=== PATIENT | male | born 1955 | race African-American/Black ===

== ENCOUNTER 2019-02-07 12:02 | Inpatient (IN) ==
--- NOTE | 2019-02-06 13:57 | Anesthesiology Consultation ---
Date of Service February 06, 2019 Assessment & Plan (1) Encounter for pre-operative examination: CHECK BSG AM DOS A1C and MRSA swab ordered by surgeon but apparently not completed. Perform AM DOS at surgeon and anesthesia discretion. BSG was 86 on pre-op testing 02/06. Patient is an inmate at [facility]. Hx obtained from records. Please confirm meds/allergies/hx AM DOS. Chart Review Chart Review: Acceptable Risk for Surgery and Patient NOT seen in Pre Admission Testing History Surgery Operation Date: 02/07/19 13:30 Proposed Procedures p Right Lateral Open Reduction Internal Fixation Malleous Fracture - Job Guerrero MD Height/Weight Height: 6 ft Weight: 108.862 kg Allergies Allergy/AdvReac Type Severity Reaction Status Date / Time No Known Allergies Allergy Unverified 02/06/19 13:45 Medications Home Medications Medication Instructions Recorded Confirmed Last Taken acetaminophen [Tylenol] 325 mg PO QID PRN 02/06/19 02/06/19 Unknown aspirin [Aspirin Low Dose] 81 mg PO DAILY 02/06/19 02/06/19 Unknown atorvastatin 40 mg PO DAILY 02/06/19 02/06/19 Unknown ibuprofen 600 mg PO QID PRN 02/06/19 02/06/19 Unknown levothyroxine 75 mcg PO DAILY 02/06/19 02/06/19 Unknown lisinopril 20 mg PO DAILY 02/06/19 02/06/19 Unknown metformin 500 mg PO DAILY 02/06/19 02/06/19 Unknown Past Medical History Medical History Ankle fracture Diabetes mellitus Essential (primary) hypertension Hypothyroidism Tobacco use Past Surgical History Surgical History History of facial fracture repair Orbital bone Testing Laboratory Results 02/06/19 WBC: 5.84 H/H: 13.6/40.3 PLATELETS: 325 SODIUM: 141 POTASSIUM: 4.6 CHLORIDE: 106 CO2: 29 BUN: 13 CREATININE: 0.99 GLUCOSE: 86 Electrocardiogram Date: 02/06/19 Findings: + SB @ (54)
[~2019-02-07 12:02] MED LIST: BUPIVACAINE 0.25% 30 ML VIAL ONE; CEFAZOLIN 2000MG 2,000 MG/15 ML SYR IV SCH; LR 15ML/HR IV SCH; ROPIVACAINE 0.5% 5 MG/ML 30 ML VIAL ONE
[2019-02-07] MEDS ORDERED: PHENYLEPHRINE 100MCG/ML 5ML SYR IV PRN (12:41)
[2019-02-07] MEDS ORDERED: fentaNYL citrate 100 MCG/2 ML VIAL IV PRN (12:41)
[2019-02-07] MEDS ORDERED: ATROPINE SULFATE 0.1 MG/ML 10ML SYR IV PRN (12:41)
[2019-02-07] MEDS ORDERED: ePHEDrine sulfate 50 MG/ML AMP IV PRN (12:41)
[2019-02-07] MEDS ORDERED: PROMETHAZINE HCL 12.5 MG in SODIUM CHLORIDE 0.9% 50 ML IV PRN (12:41)
[2019-02-07] MEDS ORDERED: ONDANSETRON INJ 2 MG/ML 2 ML VIAL IV PRN (12:41)
[2019-02-07] MEDS ORDERED: HYDROmorphone INJ 1 MG/ML SYRINGE IV PRN (12:41)
[2019-02-07] MEDS ORDERED: ONDANSETRON INJ 2 MG/ML 2 ML VIAL ONE (13:10)
[2019-02-07] MEDS ORDERED: MIDAZOLAM HCL 1 MG/ML 2ML VIAL ONE ×2 (13:10)
[2019-02-07] MEDS ORDERED: PROPOFOL IV EMULSION 10 MG/ML 20 ML VIAL IV ONE (13:10)
[2019-02-07] MEDS ORDERED: fentaNYL citrate 100 MCG/2 ML VIAL ONE (13:10)
[2019-02-07] MEDS ORDERED: DEXAMETHASONE SOD INJ 4 MG/ML VIAL ONE (13:10)
[2019-02-07] MEDS ORDERED: LIDOCAINE HCL 2% 2 ML VIAL/AMP(20MG/ML) INFIL ONE (13:10)
--- NOTE | 2019-02-07 13:21 | History & Physical Bridge Note ---
Date of Service February 07, 2019 History & Physical Bridge Note I have examined the patient, reviewed the History & Physical and in the interval since the performance of the History & Physical I have noted the following changes of clinical significance: no changes noted
[2019-02-07] MEDS ORDERED: POVIDONE-IODINE OP SOLN 30 ML BTL ONE (13:29)
[2019-02-07 13:31] LABS: Estimated Average Glucose 131 mg/dl; Hemoglobin A1C 6.2 % (4.5-5.6)
[2019-02-07] MEDS ORDERED: BUPIVACAINE 0.5 % 5 MG/1 ML MPF 30ML VIAL ONE (13:49)
[2019-02-07] MEDS ORDERED: HYDROmorphone INJ 2 MG/ML SYR/VIAL ONE (14:16)
--- NOTE | 2019-02-07 15:34 | Operative Report ---
Post Operative Report Pre & Post Diagnosis Operation Date: 02/07/19 13:30 Pre-Op Diagnosis: Right Ankle Lateral Malleolus Fracture Post-Op Diagnosis: Right Ankle Lateral Malleolus Fracture Procedure Operation Date: 02/07/19 13:30 Actual Procedures p Open Reduction Internal Fixation Right Lateral Malleous Fracture(Right) - Job Guerrero MD Surgeon Job Guerrero MD Shipping Lead Natalie Guidry Estimated Blood Loss 5 Findings Consistent with Post-Op Diagnosis Specimens None Drains None Anesthesia Type General Regional Complications none Disposition Accompanied Patient To Recovery: No Indications Patient is a 63-year-old male inmate. He is approximately 2 weeks status post injury to his right ankle. X-rays show a displaced low Steven B type fracture with widening of the medial clear space and a medial malleolar avulsion. There is also irregularity of the medial talar dome. A CT scan has been done which shows an in situ chronic osteochondral lesion of the medial talar dome. There is also a comminuted shell evulsion of the posterior malleolus and a small medial malleolar avulsion fracture. There is comminution of the posterior spike of the lateral malleolus fracture which is very acute oblique. Patient denies prior problems with the ankle. He has been advised regarding the chronic osteochondral lesion of the talus. This looks to be in situ on the CT scan it is not displaced. It is chronic and had not been causing any problems and he did not think that it it has been caused or aggravated by the current injury based upon the available information. Treatment options risks and benefits were discussed and I recommended surgery which she is agreed to proceed with. Description of Procedure Informed consent obtained. Patient identified. He identified the operative site as the right ankle. I marked with my initials. A preop surgical timeout was performed. Preop dose of antibiotics given. He was positioned supine on the OR table after administration of a general anesthetic and popliteal block. Tourniquet on the right thigh and a bump under the right hip. The leg was pre- scrubbed and prepped and draped in usual sterile fashion. Skin was intact and swelling was improved compared to preop. Skin wrinkles and intact with no break in the skin. DVT prophylaxis with foot pumps. Postoperatively early mobility m echanical devices and Lovenox. Bony prominences inspected and padded. The leg was prepped and draped in usual sterile fashion. Limb exsanguinated with the Esmarch. Tourniquet inflated to 250 mmHg. A 8 to 10 cm longitudinal lateral incision was. Blunt dissection performed down to the subcutaneous tissues to the periosteum. Transversing veins were electrocauterized and divided. The periosteum was incised and subperiosteal exposure was performed. There was organizing callus and hematoma at the fracture site. This was advanced beyond what would be seen in any acute fracture. Subperiosteal exposure performed. A [place] was utilized to help mobilize. The posterior periosteum was released to help improve length. The syndesmotic ligaments were allowed to remain intact. The ankle was inverted and the area was cleaned of hematoma. A dental pick and curette were used to abrade the fracture surfaces. At this time I was then able to anatomically reduce the fracture. A short distal fibular locking plate was selected and affixed to the distal fibula with a pin. A pointed bone clamp was utilized to maintain the anatomic reduction. Fluoroscopic guidance was utilized to assess reduction of the medial clear space hardware and fracture. A cortical screw 4.0 cancellus was inserted into the oblong hole to approximate the plate to the bone. This was followed by 5 distal unicortical 2.7 mm locking screws. Once the distal fragment had been secured I then put a compression screw in the middle combination hole. It was tightened and the prior screw proximally was loosened. This would give some compression across the essentially transverse to very short oblique fracture. Fracture remained anatomically aligned. A bicortical 3.5 mm locking screw was inserted proximally. Tourniquet was let down after 50 minutes of inflation. Meticulous hemostasis was performed. Multiplanar x-rays confirmed that the screws were of appropriate length, the fracture was anatomically reduced, the medial clear space was reduced. There was some minor comminution of the posterior malleolus. Hardware was in good position and the ankle fracture was anatomically reduced. The syndesmosis was stable to manual stressing. Meticulous hemostasis was performed and irrigation with sterile saline was done. The periosteum and deep subcutaneous tissues were closed with 0 Vicryl followed by 3-0 Vicryl and danielle on the skin. Additional 0.5% plain Marcaine was injected into the skin and subcutaneous tissues. Xeroform 4 x 4's sterile cast padding and a posterior splint with the ankle in neutral was then applied. Patient was then awakened from anesthesia without difficulty and taken to the recovery room in stable condition. There were no specimens or complications. Counts were correct. Blood loss was approximately 5 cc. There is no unavailable to speak to at the conclusion the operation. I attest to the content of the Intraoperative Record and any orders documented therein. Any exceptions are noted below.
--- NOTE | 2019-02-07 15:49 | Operative Report ---
Post Operative Report Pre & Post Diagnosis Operation Date: 02/07/19 13:30 Pre-Op Diagnosis: Right Ankle Lateral Malleolus Fracture Post-Op Diagnosis: Right Ankle Lateral Malleolus Fracture Procedure Operation Date: 02/07/19 13:30 Actual Procedures p Open Reduction Internal Fixation Right Lateral Malleous Fracture(Right) - Job Guerrero MD Surgeon Job Guerrero M.D. Entry Operator Natalie Guidry PA-C Estimated Blood Loss 5 Findings Consistent with Post-Op Diagnosis Specimens None Anesthesia Type General Regional Complications none Disposition Accompanied Patient To Recovery: No Disposition: Recovery Room Description of Procedure Patient was taken to the operating room, placed under general anesthesia, given IV Ancef for surgical prophylaxis. Time out was performed, prepped and draped in routine sterile fashion. I was present during the entire case, please see Dr. Guerrreo's operative report for further detail. Patient was awakened and taken to the recovery room in stable condition. I attest to the content of the Intraoperative Record and any orders documented therein. Any exceptions are noted below.
--- NOTE | 2019-02-07 16:12 | Anesthesiology Progress Note ---
Date of Service February 07, 2019 Anesthesia Post Procedure Vital Signs Vital Signs: Temp Pulse Pulse Resp BP Pulse Ox 02/07/19 16:05 85 17 131/75 98 02/07/19 15:55 76 23 139/80 95 02/07/19 15:45 36 C L 75 16 131/75 95 02/07/19 12:45 36.8 C 57 L 20 150/82 H 98 Transfer of Care Handoff Completed per policy Notes Mental Status: alert / awake / arousable Patient Amnestic to Procedure: Yes Nausea / Vomiting: adequately controlled Pain: adequately controlled Airway Patency, RR, SpO2: stable & adequate BP & HR: stable & adequate Hydration State: stable & adequate Anesthetic Complications: no major complications apparent and Pt Satisfied with anesthetic care
[2019-02-07] MEDS ORDERED: NALOXONE HCL 0.4 MG/1 ML VIAL/CARP IV PRN (16:32)
[2019-02-07] MEDS ORDERED: KETOROLAC TROMETHAMINE 15 MG/ML VIAL IV PRN (16:32)
[2019-02-07] MEDS ORDERED: METOCLOPRAMIDE HCL INJ 5 MG/ML 2 ML VIAL IV PRN (16:32)
[2019-02-07] MEDS ORDERED: SODIUM CHLORIDE 0.9% 1000ML 1,000 ML IV SCH (16:32)
[2019-02-07] MEDS ORDERED: BISACODYL 10 MG SUPP PR PRN (16:32)
[2019-02-07] MEDS ORDERED: ALUMINUM/MAGNESIUM SUSP 30 ML UDC PO PRN (16:32)
[2019-02-07] MEDS ORDERED: HYDROmorphone INJ 0.5 MG/0.5 ML SYR IV PRN (16:32)
[2019-02-07] MEDS ORDERED: MAGNESIUM HYDROXIDE SUSP 30 ML UDC PO PRN (16:32)
[2019-02-07] MEDS ORDERED: PHARMACY GLYCEMIC MGMT CONSULT PRN (16:49)
--- NOTE | 2019-02-07 17:15 | Fluoroscopy Report ---
FL ankle RT 2V CLINICAL HISTORY: RT ORIF ANKLE COMPARISON STUDY: Right radiographs February 03, 2019. Right ankle CT February 06, 2019. FLUOROSCOPY TIME: 14.3 seconds. FLUOROSCOPIC IMAGES: 3. FINDINGS: These images demonstrate plate and screw fixation of the distal right fibular fracture. Fra cture alignment is significantly improved and appears anatomic. There is no ankle mortise widening. F racture of the posterior distal right tibia is again noted. Avulsion fracture of the medial malleolus is noted. No unexpected radiopaque foreign bodies. IMPRESSION: Expected findings following internal fixation of a distal right fibular fracture. Electronically signed by: Kareem Roa M.D. 02/07/2019 5:14 PM
[2019-02-07] MEDS: INSULIN ASPART 100 UNITS/ML 3 ML PEN SC SCH ×2 (18:27→20:46)
[2019-02-07] MEDS: CEFAZOLIN 2000MG 2,000 MG/15 ML SYR IV SCH (20:35)
[2019-02-07] MEDS: DOCUSATE SODIUM 100 MG CAP PO SCH (20:35)
[2019-02-07] MEDS: SENNA 8.6 MG TAB PO SCH (20:35)
[2019-02-07] MEDS: ACETAMINOPHEN 500 MG TAB PO SCH (21:00)
[2019-02-08] MEDS: TRAMADOL HCL 50 MG TABLET PO PRN ×4 (00:44→17:30)
[2019-02-08] MEDS ORDERED: INSULIN ASPART 100 UNITS/ML 3 ML PEN SC SCH (02:00)
[2019-02-08] MEDS: ACETAMINOPHEN 500 MG TAB PO SCH ×3 (06:03→21:40)
[2019-02-08] MEDS: LEVOTHYROXINE SODIUM 75 MCG TABLET PO SCH (06:03)
[2019-02-08] MEDS: CEFAZOLIN 2000MG 2,000 MG/15 ML SYR IV SCH (06:03)
[2019-02-08 06:41] LABS: Hematocrit (blood only) 38.9 % (42-52); Hemoglobin 13.6 g/dL (14.0-18.0); Mean Corpuscular Volume 84.7 fL (80-100); Mean Platelet Volume 8.2 fL (7.4-10.4); Platelet Count 294 K/uL (130-400); RDW Coefficient of Variation 14.3 % (11.5-14.5); RDW Standard Deviation 44.4 fL (36.4-46.3); Red Blood Count 4.59 M/uL (4.7-6.1); White Blood Count 10.02 K/uL (4.8-10.8)
[2019-02-08 06:56] LABS: Partial Thromboplastin Ratio 0.9; Partial Thromboplastin Time 24.2 Seconds (21.0-31.0); Prothrombin Time 10.5 Seconds (9.0-12.0)
[2019-02-08] MEDS: MULTIVITAMIN TAB PO SCH (07:34)
[2019-02-08] MEDS: ASPIRIN 81 MG ECTAB PO SCH (07:34)
[2019-02-08] MEDS: LISINOPRIL 20 MG TAB PO SCH (07:34)
[2019-02-08] MEDS: ATORVASTATIN 40 MG TAB PO SCH (07:34)
[2019-02-08] MEDS: DOCUSATE SODIUM 100 MG CAP PO SCH ×2 (07:34→20:30)
[2019-02-08] MEDS: ENOXAPARIN INJ 30 MG/0.3 ML SYR SQ SCH ×3 (07:35→09:43)
[2019-02-08] MEDS: NICOTINE 21 MG/24 HR TDSY TD SCH (07:35)
[2019-02-08] MEDS ORDERED: PNEUMOCOCCAL ADMINISTRATION CHARGE ONE (08:00)
[2019-02-08] MEDS ORDERED: PNEUMOCOCCAL POLYSACCHARIDES 25 MCG/0.5 ML VIAL/SYR IM ONE (08:00)
[2019-02-08] MEDS: INSULIN ASPART 100 UNITS/ML 3 ML PEN SC SCH ×4 (08:50→22:23)
--- NOTE | 2019-02-08 10:10 | Progress Note ---
DATE: 02/08/2019 The patient was up with PT without much difficulty. He reports pain is controlled with medicine, but when he does not have medicine has significant pain. He has been taking Ultram. He reports some numbness and tingling in his foot. Vital signs noted. Blood pressure a little bit on the high side, but might be related to pain. Urine output is adequate. His labs are noted. White count 10, hemoglobin 13, hematocrit 39. PT/INR within normal limits. A1c is 6.2. Vitamin D profoundly low at 11.2. PHYSICAL EXAMINATION: He reports some numbness and tingling in the toes and top of the foot. Normal sensation on the bottom of the foot. He has 3/5 toe extension. He is not able to extend his ankle. He has 5-/5 toe flexion. There is tingling and numbness in toes and top of the foot but more normal sensation on the bottom, not completely normal Capillary refill less than 2 seconds. Foot is warm. Dorsalis pedis is 1+ palpable. IMPRESSION: ORIF right ankle, lateral malleolus fracture, hypertension, diabetes, hypothyroidism. PLAN: Control blood sugars. Elevate leg, ice. Walker or crutches, nonweightbearing. Replace vitamin D. I think the numbness and weakness could be related to the persistent nerve block. There are no large motor nerves around the area where we are working with surgery. I would like to continue to monitor this and ensure that it returns to normal. Additionally, he requires continued narcotic pain medicine management. We will continue his hospitalization for today and reassess tomorrow for discharge. Lovenox for DVT prophylaxis along with mechanical devices. DELROY
[2019-02-08] MEDS ORDERED: ERGOCALCIFEROL 50,000 UNITS CAP PO ONE (10:45)
[2019-02-08] MEDS: OXYCODONE HCL IR 5 MG TAB (IMMEDIATE RELEASE) PO PRN ×2 (13:42→20:41)
--- NOTE | 2019-02-08 14:19 | Pharmacy Report ---
Glycemic Control Consultation - Date of Service February 08, 2019 - Scope Scope: Glycemic Pharmacist consulted by Dr Guerrero on 02/08/19 for glycemic control and to write orders per [facility] inpatient glycemic control protocol - Objective Weight: 109.769 kg Accuchecks BSG (last 24hrs): 02/07/19 02/07/19 02/07/19 15:52 17:52 20:45 POC Glucose 102 H 114 H 119 H 02/08/19 02/08/19 02/08/19 02:02 08:02 12:21 POC Glucose 145 H 112 H 107 H HbA1c: 6.2 % (4.5-5.6) H 02/07/19 12:21 - Recent Pertinent Medications Outpatient Anti-diabetic Regimen: * Metformin 500mg BIDM * A1c = 6.2 % 02/07/19 - Assessment & Plan Assessment & Plan: ASSESSMENT: * Mr. Faust is a 63yo M s/p ORIF R ankle. His BSGs while admitted have been well controlled: [phone]/dL. He is being maintained on wt/stress 2 with correctional insulin. Will loosen up insulin tonight as I anticipate the curtis- operative DXM will start to wear off. Likely add back metformin PLAN FOR INPATIENT GLYCEMIC CONTROL: * Holding outpatient oral diabetes medications * Basal insulin * No indication at this juncture * Bolus insulin * NovoLog per scale ACHS or Q6hrs while NPO * Goal Range: Low 110 mg/dL - High 140 mg/dL * Correction Factor: 20 mg/dL/unit * Nutritional / Prandial insulin per carb ratio of 1 unit per 6 grams CHO consumed * Please note that the plan above was derived based on current level of insulin resistance and hospital stress. These recommendations are appropriate for inpatient admission only. Plan of care upon discharge will need to be reassessed to avoid potential outpatient hypo/hyperglycemia. Thank you.
[2019-02-08] MEDS: METFORMIN HCL 500 MG TAB PO SCH (18:15)
[2019-02-08] MEDS: ONDANSETRON INJ 2 MG/ML 2 ML VIAL IV PRN (18:15)
[2019-02-08] MEDS: SENNA 8.6 MG TAB PO SCH (20:30)
[2019-02-09] MEDS: OXYCODONE HCL IR 5 MG TAB (IMMEDIATE RELEASE) PO PRN ×2 (00:43→06:24)
[2019-02-09] MEDS: LEVOTHYROXINE SODIUM 75 MCG TABLET PO SCH (06:20)
[2019-02-09] MEDS: ACETAMINOPHEN 500 MG TAB PO SCH ×2 (06:20→13:53)
[2019-02-09] MEDS: MULTIVITAMIN TAB PO SCH (07:52)
[2019-02-09] MEDS: ENOXAPARIN INJ 30 MG/0.3 ML SYR SQ SCH (07:52)
[2019-02-09] MEDS: LISINOPRIL 20 MG TAB PO SCH (07:52)
[2019-02-09] MEDS: DOCUSATE SODIUM 100 MG CAP PO SCH (07:52)
[2019-02-09] MEDS: METFORMIN HCL 500 MG TAB PO SCH (07:52)
[2019-02-09] MEDS: ATORVASTATIN 40 MG TAB PO SCH (07:52)
[2019-02-09] MEDS: ASPIRIN 81 MG ECTAB PO SCH (07:52)
[2019-02-09] MEDS: NICOTINE 21 MG/24 HR TDSY TD SCH (07:53)
--- NOTE | 2019-02-09 08:13 | Progress Note ---
DATE: 02/09/2019 SUBJECTIVE: Resting comfortably in bed. Has had some pain and did take some oxycodone. Sensation is better. He is eating well and reports no other issues. OBJECTIVE: He is afebrile. His vital signs are stable. The splint was loosened. No blistering. Swelling is mild to moderate. Dressing intact. Dorsalis pedis 1+. Sensation ankle and toes, normal or nearly normal with minimal or no tingling and numbness. He has 5-/5 ankle and toe plantar flexion and dorsiflexion strength. IMPRESSION: 1. Right ankle fracture. 2. Diabetes. 3. Hypertension. PLAN: Findings discussed. We will get him a physical therapy today. Pain control. Recommend discharge back to senior living facility later today after lunch. He will follow up with me in 2 weeks. Elevate, ice. Nonweightbearing. Leave splint on, keep clean and dry. Vitamin D 50,000 units weekly, Lovenox 30 mg subcutaneous q. 12 x 2 weeks. Percocet or Ultram for pain. Cover the base. Nonweightbearing. Block has worn off. His neurovascular function is normal. All is going well at this point and we will see him as an outpatient.
[2019-02-09] MEDS: INSULIN ASPART 100 UNITS/ML 3 ML PEN SC SCH ×2 (08:37→12:22)
--- NOTE | 2019-02-09 08:58 | Discharge Summary ---
Date of Service February 09, 2019 Discharge Data Consultations 02/07/19 16:32 Consult Case Management - Discharge Planning Routine Procedures Performed Operation Date: 02/07/19 13:30 Actual Procedures p Open Reduction Internal Fixation Right Lateral Malleous Fracture(Right) - Job Guerrero MD Hospital Course (1) Fracture of distal fibula: Patient was admitted to [facility] after undergoing an open reduction internal fixation of his right distal fibula fracture with Dr. Guerrero assisted by Natalie Guidry PA-C on February 07, 2019. His surgery was performed his general anesthesia and a peripheral nerve block. He tolerated the procedure well without any intraoperative or postoperative complications. He was given 2 g of IV Ancef which was continued after surgery. Postoperatively he was allowed out of bed, nonweightbearing right lower extremity. He was instructed on icing and elevating as needed for pain and swelling. Pain medication was prescribed and consisted of tramadol, scheduled Tylenol, oxycodone and IV Dilaudid. His pain was well controlled during his inpatient st [facility]. On postoperative day 1 he was evaluated and still continued to have pain requiring IV pain medication and numbness and tingling in his right foot most likely due for it to the block. It was determined to leave him here another day for follow-up evaluation and monitoring. On postoperative day 2 he was seen and evaluated his splint and dressings were loosened and his sensation had returned to normal and his pain was much controlled on oral pain medication. He was safe out of bed using a walker to assist with ambulation. He was placed on Lovenox for DVT prophylaxis 30 mg twice daily x2 to 4 weeks. His Ancef was also continued for 24 hours postoperatively. He tolerated a regular diet. Vital signs were stable. He was seen and evaluated by physical therapy and was deemed safe for discharge. On postoperative day 2 he was discharged to [facility] in stable condition. Discharge Instructions as documented in EMR
[2019-02-09] MEDS: ONDANSETRON INJ 2 MG/ML 2 ML VIAL IV PRN (09:31)
[2019-02-09] MEDS: TRAMADOL HCL 50 MG TABLET PO PRN ×2 (10:20→14:14)
== END 2019-02-09 16:41 | DRG 494 ==
LOC: ASU 12:02 → 3E 15:47

== ENCOUNTER 2019-11-14 07:10 | Inpatient (IN) ==
--- NOTE | 2019-11-10 10:26 | Anesthesiology Consultation ---
Date of Service November 10, 2019 Assessment & Plan (1) Encounter for pre-operative examination: Chart Review Chart Review: Acceptable Risk for Surgery (pending PRP (including BSG) DOS ) and Patient NOT seen in Pre Admission Testing Pt is inmate at [facility]. Will check PRP including BSG DOS. Carbamazepine noted in med list- per records- no history of seizure disorder. Possibly used for different medical condition- will need further evaluation DOS. Right Ankle ORIF 02/07/19= GA with LMA #5- smooth IV induction, atraumatic LMA. No significant issues noted per anesthesia record History Surgery Operation Date: 11/14/19 09:20 Proposed Procedures p Right Ankle Hardware Removal, - Job Guerrero MD s Irrigation and Debridement - Job Guerrero MD Height/Weight Height: 6 ft Weight: 112.945 kg Allergies Allergy/AdvReac Type Severity Reaction Status Date / Time No Known Allergies Allergy Verified 11/14/19 07:54 Medications Home Medications Medication Instructions Recorded Confirmed Last Taken aspirin [Aspirin Low Dose] 81 mg PO DAILY 02/06/19 11/14/19 11/13/19 14:00 atorvastatin 40 mg PO DAILY 02/06/19 11/14/19 11/13/19 14:00 ibuprofen 600 mg PO TID PRN 02/06/19 11/14/19 11/13/19 14:00 lisinopril 20 mg PO DAILY 02/06/19 11/14/19 11/13/19 14:00 metformin 500 mg PO BID 02/06/19 11/14/19 11/11/19 18:00 acetaminophen [Tylenol Extra 1,000 mg PO Q8 PRN 10/26/19 11/14/19 11/13/19 14:00 Strength] carbamazepine 200 mg PO HS 10/26/19 11/14/19 Unknown levothyroxine 112 mcg PO DAILY 10/26/19 11/14/19 11/13/19 07:00 Active Medications Generic Name Dose Route Start Last Admin Trade Name Freq PRN Reason Stop Dose Admin Lactated Ringer's 1,000 mls @ 15 mls/hr 11/14/19 06:00 11/14/19 08:45 Lr IV 11/14/19 18:00 Not Given .Q24H MACI Lactated Ringer's 1,000 mls @ 15 mls/hr 11/14/19 06:00 11/14/19 08:35 Lr IV 11/15/19 05:59 15 mls/hr .Q24H MACI Administration Past Medical History Medical History Diabetes mellitus Essential (primary) hypertension Hypothyroidism Past Surgical History Surgical History History of facial fracture repair Orbital bone History of open reduction and internal fixation (ORIF) procedure RIGHT ANKLE Social History Smoking Status: Unknown if ever smoked Do You Dip or Chew Tobacco: No Hx Alcohol Use: No Hx Substance Use: No substance use type: does not use Physical Exam Vital Signs Last Vital Signs Temp 36.5 C 11/14/19 08:01 Pulse 59 L 11/14/19 08:01 Resp 20 11/14/19 08:01 BP 155/101 H 11/14/19 08:01 Pulse Ox 99 11/14/19 08:01 Testing Laboratory Results 11/14/19 07:42 11/14/19 11/14/19 09:06 07:50 POC Glucose 94 84 10/26/19= WBC: 5.65 H/H: 13.3/39.5 PLATELETS: 319 Electrocardiogram Date: 02/06/19 Findings: + SB @ (54) Chest X-Ray Date: 02/06/19 Findings: + NAD
--- NOTE | 2019-11-13 14:11 | History & Physical Report ---
Date of Service November 13, 2019 Assessment & Plan (1) Deep postoperative wound infection: Patient is scheduled for removal of deep hardware, irrigation and debridement of his right ankle with Dr. Guerrero. Surgery is planned for November 14, 2019. Risks and complications of the procedure were extended the patient and include but are not limited to infection, bleeding, pain, scarring, nerve and blood vessel damage, wound problems, weakness, stiffness, incomplete relief of symptoms, tendon or ligament injury, blood clots, embolisms, heart attack, stroke and , refracture, further surgery. All questions were answered and informed consent was obtained by Dr. Guerrero. Postoperative course was discussed. He will be admitted after the procedure. He did have her preoperative CBC, ESR, CRP and vitamin D prior to surgery. He is not need a preoperative EKG. He will be nonweightbearing to partial weightbearing after the surgery. He will need a walker. He most likely will need after surgery for glycemic control consult, possible hospitalist consult, infectious disease consultation, PICC placement. Intraoperative cultures will be obtained. Preoperative antibiotics were discontinued for the time being. We will also hold any intraoperative antibiotics due to obtaining intraoperative cultures. He was instructed to be nothing by mouth after midnight. He was instructed on the usage of CHG cloths prior to surgery. These instructions were sent back with him to his facility. All questions are answered. He does call with any further problems, questions or concerns. History of Present Illness Chief Complaint: right ankle open draining wound, s/p ORIF right distal fibular fracture with retained hardware Primary Care Provider: DIONNE Alfaro Patient is a 64-year-old male who is here today for preoperative history and physical. He is scheduled to have removal of hardware from his right ankle and irrigation and debridement with Dr. Guerrero on November 14, 2019 at the [facility]. He is status post an open reduction internal fixation of his right ankle fracture On February 07, 2019. He reports ongoing pain and swelling in his right ankle. He states that since his surgery his ankle incision opened up 3 times. First of these episodes with Karie Van of July and early August. He is currently on doxycycline. It recently opened about a month ago. He has had pain at rest and with walking. His ambulation is limited due to pain in his right ankle. He describes it as a sharp stabbing pain down through his heel. He has been getting around with a wheelchair. He denies any injuries. States that it hurt ever since surgery. Since his last appointment he's been off the doxycycline at the request of Dr. Guerrero. He's been doing dressing changes on his own every day or every other day. States that it does drain every time her pushes on it. Denies any fevers or chills. Allergies Allergy/AdvReac Type Severity Reaction Status Date / Time No Known Allergies Allergy Verified 10/26/19 17:16 Home Medications Home Medications Medication Instructions Recorded Confirmed Type aspirin [Aspirin Low Dose] 81 mg PO DAILY 02/06/19 10/26/19 History atorvastatin 40 mg PO DAILY 02/06/19 10/26/19 History ibuprofen 600 mg PO TID PRN 02/06/19 10/26/19 History lisinopril 20 mg PO DAILY 02/06/19 10/26/19 History metformin 500 mg PO BID 02/06/19 10/26/19 History acetaminophen [Tylenol Extra 1,000 mg PO Q8 PRN 10/26/19 10/26/19 History Strength] carbamazepine 200 mg PO HS 10/26/19 10/26/19 History levothyroxine 112 mcg PO DAILY 10/26/19 10/26/19 History Past Med/Surg History Social History (Updated 11/13/19 @ 13:54 by Natalie Guidry PA-C) Preferred Language: Barbadian Communication Ability: Effective Cube Cutter Required: No Beliefs That Will Affect Care: None Current Living Situation: Other Current Living Situation Comment: [facility] Other Information That Helps Us Care for You: No Feels Safe at Home: Yes Smoking Status: Former smoker Do You Dip or Chew Tobacco: No ; Second Hand Exposure: No ; Tobacco Cessation Education Requested by Patient: No Hx Alcohol Use: No Hx Substance Use: No Review of Systems Constitutional: no fever, no chills, no sweats, no body aches, no fatigue, no weight loss and no weight gain Eyes: no blind spots, no diplopia, no discharge and no itchy eyes Ear, Nose, Mouth, Throat: no ear pain, no tinnitus, no hearing loss, no dizziness, no sinus pain/pressure, no dental abscess, no loose teeth and no sore throat Respiratory: no cough, no pain on inspiration, no stopping breathing during sleep and no wheezing Cardiovascular: no chest pain, no dyspnea at rest, no dyspnea on exertion, no palpitations, no syncope, no edema and no calf pain Gastrointestinal: no abdominal pain, no bloating, no heartburn, no nausea, no vomiting, no dysphagia, no constipation and no diarrhea/loose stools Genitourinary: no dysuria, no difficulty urinating, no urinary frequency, no urinary incontinence, no post-void dribbling and no hematuria Musculoskeletal: + joint pain (right ankle), + swelling (mild - right ankle) and + limited range of motion (right ankle); no radicular pain, no deformity and no muscle atrophy Integumentary: + wounds (right ankle incision); no rash and no pruritus Neurologic: + tingling (occasional tingling in both feet; states intermittent) and + headache(s) (had a mild "stress" headache the other day); no radiating pain, no seizure-like activity, no dizziness, no syncope, no confusion and no memory loss Psychiatric: no irritability, no anxiety and no confusion Endocrine: no cold intolerance and no heat intolerance Hematologic / Lymphatic: no easy bleeding, no easy bruising and no coagulopathy Physical Exam Constitutional: WD/WN, vitals as above no acute distress and no altered men shawna status Eyes: PERRL, conjunctivae normal, anicteric sclerae EOM intact bilaterally ENMT: external ear and nose normal, oropharynx normal Nose: no sinus tenderness Mouth: + dentition abnormality (poor dentition, no abscesses or erythema of gums) Throat: uvula midline Neck: trachea midline, no thyromegaly no neck crepitus Respiratory: normal respiratory effort, lungs clear to auscultation Auscultation: no diminished lung sounds, no crackles, no rales, no rhonchi and no wheezes Cardiovascular: RRR, no murmur, no edema Heart Sounds: normal S1 and normal S2; no click, no gallop and no murmur Palpation: normal PMI Vessels: shyam salis pedis pulses present Extremities: normal capillary refill; no calf tenderness and no pedal edema Chest (Breasts): Chest: normal inspection of chest Gastrointestinal (Abdomen): normal bowel sounds, soft, nontender, no hepatosplenomegaly Inspection/Auscultation: abdomen not distended Musculoskeletal: Exam of his right ankle: pinpoint opening at the distal most aspect of the incision. Able to express white/yellow purulent material from wound. Moves ankle well with discomfort. Dorsalis pedis pulse 1+. Foot nontender. Skin intact and healthy, cap refill normal. Tenderness with palpa tion of right ankle wound/incision/distal fibula. No ankle effusion. Minimal surrounding erythema. Skin healthy around ankle except some dryness. No lesions, blisters or skin breakdown. Nontender at right knee. No calf tenderness, calf supple. Mild edema right ankle. strength 5/5. Psychiatric: A+Ox3, euthymic affect Speech: normal rate/rhythm/volume of speech Results & Data Vital Signs (Past 12 Hours) Height: 181 cm, weight: 114 kg Temperature: 37.2, blood pressure: 148/88, heart rate: 68, oxygenation on room air: 98%, pain scale: 9/10 Laboratory Results Vitamin D: 29.9 CBC: Platelet count 319, white blood cell count 5.65, her blood cells 4.5 to, hemoglobin 13.3, hematocrit 39.5 CRP is 0.5 ESR is 26 Diagnostic Findings 3 views of the right ankle taken on October 24, 2019: Ankle mortise and syndesmosis are intact. There is chronic-appearing osteochondral lesion on the medial side of the talus which is unchanged compared to prior films. The late ral malleolus fractures completely healed with hardware intact. There is lucency around the proximal screw. ECG Rhythm: sinus bradycardia (Performed on February 06, 2019, otherwise normal EKG)
[~2019-11-14 07:10] MED LIST changes: -BUPIVACAINE 0.25% 30 ML VIAL ONE; -CEFAZOLIN 2000MG 2,000 MG/15 ML SYR IV SCH; -ROPIVACAINE 0.5% 5 MG/ML 30 ML VIAL ONE
[2019-11-14] MEDS ORDERED: BUPIVACAINE 0.5 % 5 MG/1 ML MPF 30ML VIAL ONE (07:43)
[2019-11-14 08:36] LABS: BUN Creatinine Ratio 16.5 (10-20); Calcium 9.4 mg/dl (8.5-10.1); Creatinine Clr Calc Pharmacy 90.5 ml/min; Est GFR (African American) 84.9; Est GFR (Non-African American) 73.3; Potassium 3.4 mmol/L (3.5-5.1)
[2019-11-14] MEDS ORDERED: ePHEDrine sulfate 50 MG/ML AMP IV PRN (09:37)
[2019-11-14] MEDS ORDERED: ATROPINE SULFATE 0.1 MG/ML 10ML SYR IV PRN (09:37)
[2019-11-14] MEDS ORDERED: fentaNYL citrate 100 MCG/2 ML VIAL IV PRN (09:37)
[2019-11-14] MEDS ORDERED: PROMETHAZINE HCL 12.5 MG in SODIUM CHLORIDE 0.9% 50 ML IV PRN (09:37)
[2019-11-14] MEDS ORDERED: ONDANSETRON INJ 2 MG/ML 2 ML VIAL IV PRN ×2 (09:37→15:51)
[2019-11-14] MEDS ORDERED: HYDROmorphone INJ 2 MG/ML SYR/VIAL IV PRN (09:37)
[2019-11-14] MEDS ORDERED: LIDOCAINE HCL 2% 2 ML VIAL/AMP(20MG/ML) INFIL ONE (11:49)
[2019-11-14] MEDS ORDERED: ONDANSETRON INJ 2 MG/ML 2 ML VIAL ONE (11:49)
[2019-11-14] MEDS ORDERED: DEXAMETHASONE SOD INJ 4 MG/ML VIAL ONE (11:49)
[2019-11-14] MEDS ORDERED: NEOSTIGMINE METHYLSULFATE 5 MG/5 ML SYR ONE (11:49)
[2019-11-14] MEDS ORDERED: PHENYLEPHRINE HCL 10 MG/ML VIAL ONE (11:49)
[2019-11-14] MEDS ORDERED: GLYCOPYRROLATE 0.2 MG/ML VIAL ONE (11:49)
[2019-11-14] MEDS ORDERED: SUCCINYLCHOLINE CHLORIDE 20 MG/ML 10 ML VIAL ONE (11:49)
[2019-11-14] MEDS ORDERED: ePHEDrine sulfate 50 MG/ML AMP ONE (11:49)
[2019-11-14] MEDS ORDERED: MIDAZOLAM HCL 1 MG/ML 2ML VIAL ONE (11:49)
[2019-11-14] MEDS ORDERED: fentaNYL citrate 100 MCG/2 ML VIAL ONE (11:49)
[2019-11-14] MEDS ORDERED: PROPOFOL IV EMULSION 10 MG/ML 20 ML VIAL IV ONE (11:49)
--- NOTE | 2019-11-14 12:15 | History & Physical Bridge Note ---
Date of Service November 14, 2019 History & Physical Bridge Note I have examined the patient, reviewed the History & Physical and in the interval since the performance of the History & Physical I have noted the following changes of clinical significance: no changes noted
[2019-11-14] MEDS ORDERED: GENTAMICIN SULFATE 40 MG/ML 2 ML VIAL ONE (12:36)
[2019-11-14] MEDS ORDERED: VANCOMYCIN HCL 1000MG/20ML VIAL ONE (12:36)
[2019-11-14] MEDS ORDERED: ROPIVACAINE 0.5% 5 MG/ML 30 ML VIAL ONE (12:46)
[2019-11-14] MEDS ORDERED: CEFAZOLIN 250 MG/ML 1 GM VIAL ONE (13:46)
[2019-11-14] MEDS ORDERED: CEFAZOLIN 2000MG 2,000 MG/15 ML SYR IV ONE (14:31)
--- NOTE | 2019-11-14 14:45 | Fluoroscopy Report ---
FL ankle RT 2V CLINICAL HISTORY: HARDWARE REMOVAL COMPARISON STUDY: 02/07/2019 FLUOROSCOPY TIME: 6 seconds NUMBER OF FLUOROSCOPIC IMAGES: 3 FINDINGS: Image intensifier support for right distal fibular hardware removal IMPRESSION: Image intensifier support for right distal fibular hardware removal. ACT 112: Negative or not required by law. The above report was generated using voice recognition software. It may contain grammatical, syntax or spelling errors. Electronically signed by: Seng Stanton M.D. 11/14/2019 2:44 PM
[2019-11-14] MEDS ORDERED: CONSULT PHARMACY STA (15:01)
--- NOTE | 2019-11-14 15:05 | Operative Report ---
Post Operative Report Pre & Post Diagnosis Operation Date: 11/14/19 09:20 Pre-Op Diagnosis: right ankle open draining wound, s/p open reduction, internal fixation of right distal fibular fracture Post-Op Diagnosis: right ankle open draining wound, s/p open reduction, internal fixation of right distal fibular fracture I identified the patient and participated in the time-out.: Yes Procedure Operation Date: 11/14/19 09:20 Actual Procedures p Right Ankle Hardware Removal, Irrigation and Debridement, with application of Stimulan antibiotic beads - Job Guerrero MD Surgeon Job Guerrero M.D. Cable Television Access Coordinator Natalie Guidry PA-C Estimated Blood Loss 15 Findings Consistent with Post-Op Diagnosis Specimens Bone and soft tissue for culture Anesthesia Type General Regional Complications none Description of Procedure Patient was taken to the operating room, placed under general anesthesia, given peripheral nerve block prior to procedure start. Given 2gm IV Ancef for surgical prophylaxis. Time out performed, prepped and draped in routine sterile fashion. I was present during the entire case, and assisted with positioning, tissue retraction, explantation of hardware, positioning for intra-operative x- rays, irrigation, debridement, implantation of antibiotic beads, hemostasis, closure and dressings. Please see Dr. Guerrero's operative report for further detail. Patient was awakened and taken to the recovery room in stable condition. I attest to the content of the Intraoperative Record and any orders documented therein. Any exceptions are noted below.
--- NOTE | 2019-11-14 15:07 | Operative Report ---
Post Operative Report Pre & Post Diagnosis Operation Date: 11/14/19 09:20 Pre-Op Diagnosis: right ankle open draining wound, s/p open reduction, internal fixation of right distal fibular fracture Post-Op Diagnosis: right ankle open draining wound, s/p open reduction, internal fixation of right distal fibular fracture I identified the patient and participated in the time-out.: Yes Procedure Operation Date: 11/14/19 09:20 Actual Procedures p Right Ankle Hardware Removal, Irrigation and Debridement, with application of Stimulan antibiotic beads - Job Guerrero MD Surgeon Job Gurerero MD Wholesale Manager Natalie Guidry Estimated Blood Loss 15 Findings Consistent with Post-Op Diagnosis Specimens Swab culture, Tissue for biopsy and culture. Drains None Anesthesia Type General Regional Complications none Disposition Accompanied Patient To Recovery: No Disposition: Recovery Room Indications Patient is a 64-year-old inmate. He is 8 months status post ORIF of a right distal fibular fracture. He is diabetic. He has had persistent postoperative pain. Recently the wound began to drain. X-rays have shown most recently bony erosion. The findings are consistent with a deep postoperative chronic infection with probable osteomyelitis. I recommended that he have the plate removed, wound cleaned out and antibiotics. Description of Procedure Informed consent obtained. Patient identified. He identified the operative site as the right ankle. Since we last met he has been off antibiotics for at least the past 2 weeks. Additionally a sinus tract has developed with ongoing drainage. The ankle was enlarged and painful per his report. Preoperative antibiotics were held until cultures were obtained and then the antibiotics were given. He was positioned supine on the OR table with a bump under the right hip and a tourniquet on the right thigh. The leg was pre-scrubbed and then prepped and draped with Betadine in the usual sterile fashion. DVT prophylaxis with foot pumps intraoperatively and early mobility postoperatively. I marked the operative site with my initials. A preoperative surgical timeout was performed. Bony prominences were inspected and padded. Fluoroscopic guidance was utilized during the proceedure. The limb was exsanguinated with gravity. The tourniquet inflated to 250 mmHg. The prior lateral incision was opened and extended slightly distally. Proximally blunt dissection was performed down to the level of the plate. There was a sinus tract in the midportion of the wound which was excised. This communicated directly down to the plate. Distally the thickened soft tissue envelope with lots of scarring was incised directly down to the plate. The plate was exposed throughout its full extent. Fluid and snot like fibrinous material was noted the full length of the plate. Several of the screws were loose. Most notably the most proximal proximal screw and the most proximal of the distal cluster of screws. The screw and plate were easily removed and then a swab culture was obtained of the large screw holes and the snot-like fibrinous material underneath the plate. At this time all of the fibrinous debris was thoroughly debrided with a rongeur. The tourniquet was let down after the cultures were obtained and intravenous antibiotics were given. Using different sized drill bits the screw holes were debrided. They were also debrided with small curettes. Irrigation was then performed with 3 L of sterile saline containing antibiotics. Pulsatile lavage. Meticulous hemostasis was performed with electrocautery however there was general oozing throughout the wound. The superficial peroneal nerve was not encountered during the surgical dissection. The bone was bleeding. Other than the 2 mentioned screw holes previously the bone was of good quality bleeding and not soft. Stimulant beads were mixed 5 cc with 1 g of vancomycin and 160 mg of gentamicin. Once they had solidified small and medium size beads were packed into the screw holes and then some small beads were placed a deep along the plate and with care taken not to let them get superficial. The skin was then closed with 2-0 nylon in an interrupted fashion. The leg was cleaned with wet and dry sponges and a soft sterile dressing was applied Xeroform 4 x 4's ABD cast padding and a posterior splint with U stirrup ankle neutral position. He was awakened from anesthesia without difficulty and taken to the recovery room in stable condition. There were no complications. Specimens were as mentioned above. Blood loss was estimated to be 15 cc. At the conclusion of the operation there was no unavailable to speak to. Plan at this time is to admit him to the hospital have a medicine consult. Administer broad-spectrum antibiotics to cover MRSA and gram-negative's. Pharmacy is consulted and will use Zosyn and vancomycin. His kidney function is normal. He will be partial weightbearing less than 50% with the splint on. We will eventually put him into a fracture boot with partial weightbearing. A PICC line will be placed. Follow-up on cultures. DVT prophylaxis initially with Lovenox. Mechanical devices. The hardware was a Synthes distal fibular locking plate with 5 screws distally and 3 screws proximally. I attest to the content of the Intraoperative Record and any orders documented therein. Any exceptions are noted below.
[2019-11-14] MEDS ORDERED: PIPERACILL/TAZOBAC CONSULT ACTIVE PRN (15:09)
[2019-11-14] MEDS ORDERED: VANCOMYCIN CONSULT ACTIVE PRN (15:09)
[2019-11-14] MEDS ORDERED: PIPERACILLIN/TAZOBACTAM 4.5 GM in DEXTROSE 5% 100 ML IV ONE (15:30)
[2019-11-14] MEDS ORDERED: VANCOMYCIN HCL 2,500 MG in SODIUM CHLORIDE 0.9% 500 ML IV ONE (15:30)
[2019-11-14] MEDS ORDERED: HYDROmorphone INJ 0.5 MG/0.5 ML SYR IV PRN (15:51)
[2019-11-14] MEDS ORDERED: METOCLOPRAMIDE HCL INJ 5 MG/ML 2 ML VIAL IV PRN (15:51)
[2019-11-14] MEDS ORDERED: TAMSULOSIN HCL 0.4 MG CAP PO PRN (15:51)
[2019-11-14] MEDS ORDERED: bisacodyL 10 MG SUPP PR PRN (15:51)
[2019-11-14] MEDS ORDERED: ACETAMINOPHEN 500 MG TAB PO PRN (15:51)
[2019-11-14] MEDS ORDERED: NALOXONE HCL 0.4 MG/1 ML VIAL/CARP IV PRN (15:51)
[2019-11-14] MEDS ORDERED: PHARMACY GLYCEMIC MGMT CONSULT PRN (16:14)
--- NOTE | 2019-11-14 16:26 | Anesthesiology Progress Note ---
Date of Service November 14, 2019 Anesthesia Post Procedure Vital Signs Vital Signs: Temp Pulse Pulse Resp BP Pulse Ox 11/14/19 15:40 36.7 C 78 16 125/79 95 11/14/19 15:30 83 16 131/81 97 11/14/19 15:20 92 H 16 147/88 H 96 11/14/19 15:10 82 16 144/89 H 99 11/14/19 15:04 36.0 C L 88 16 128/88 100 11/14/19 08:01 36.5 C 59 L 20 155/101 H 99 Pain Intensity Right Ankle: Pain Intensity: 7 Transfer of Care Handoff Completed per policy Notes Mental Status: alert / awake / arousable and participated in evaluation Patient Amnestic to Procedure: Yes Nausea / Vomiting: adequately controlled Pain: adequately controlled Airway Patency, RR, SpO2: stable & adequate BP & HR: stable & adequate Hydration State: stable & adequate Anesthetic Complications: no major complications apparent
[2019-11-14] MEDS: SODIUM CHLORIDE 0.9% 1000ML 1,000 ML IV SCH (16:29)
[2019-11-14] MEDS ORDERED: GLUCOSE 10 TABS/TUBE PO PRN (16:45)
[2019-11-14] MEDS ORDERED: GLUCOSE 40% GEL 15 GM TUBE PO PRN (16:45)
[2019-11-14] MEDS ORDERED: DEXTROSE 50% 50 ML SYRINGE IV PRN (16:45)
[2019-11-14] MEDS ORDERED: GLUCAGON FOR INJ 1 MG VIAL SQ PRN (16:45)
[2019-11-14] MEDS ORDERED: CARBOHYDRATES FOR HYPOGLYCEMIA PO PRN (16:45)
--- NOTE | 2019-11-14 17:09 | Hospitalist Consultation ---
Date of Consultation November 14, 2019 Assessment & Plan (1) Deep postoperative wound infection: (2) Fracture of distal fibula: - S/p Right ankle hardware removal, irrigation and debridement, with application of Stimulan antibiotic beads - Follow pathology/would cultures -Pain management, bowel regimen and DVT prophylaxis per the primary team -Follow a.m. CBC -PT/OT -Received Ancef and vancomycin preoperatively -Consider probiotic (3) Hypothyroidism: -Continue levothyroxine 112 mcg daily (4) Diabetes mellitus: -ISS with Accu-Cheks ACHS -Follow a.m. A1c -Glycemic pharmacy consulted -Hold sales record clerk metformin -Consider wound consultation for follow up (5) Essential (primary) hypertension: -Continue lisinopril 20 mg daily, ASA daily (6) DVT prophylaxis: - jake on left leg, asa daily CODE: FULL Dispo: From correctional institution, discharge per primary team. Thank you for involving us in the care of Mr. Faust. Please do not hesitate to call with questions or concerns. At this time medicine service will follow along. Supervising Physician Co-Signing Physician Notes I have seen and examined patient with Romy Peralta PA-C and agree with the assessment and plan. History of Present Illness Reason for Consultation: Postop medical management Attending Physician: Job Guerrero MD History of Present Illness This is a 64-year-old male with PMHx of HTN, diabetes type 2, hypothyroidism who presents for an elective right ankle open reduction and internal fixation of the right distal fibular fracture by Dr. Guerrero on 11/14/2019. Pt reports he was using a walker prior to this surgical procedure due to pain. He has not gotten up out of bed since coming up from PACU. Patient reports feeling well, pain is well controlled, he still has numbness into the distal right lower extremity including the foot. He denies any nausea or vomiting, is tolerating oral intake without any difficulty. Patient last bowel movement was yesterday. He reports history of constipation when he has been placed on narcotics in the past, discussed asking for MiraLAX if no regular bowel movement tomorrow and he expressed understanding of this. Patient has no other acute complaints. Allergies Allergy/AdvReac Type Severity Reaction Status Date / Time No Known Allergies Allergy Verified 11/14/19 07:54 Home Medications Home Medications Medication Instructions Recorded Confirmed Type aspirin [Aspirin Low Dose] 81 mg PO DAILY 02/06/19 11/14/19 History atorvastatin 40 mg PO DAILY 02/06/19 11/14/19 History ibuprofen 600 mg PO TID PRN 02/06/19 11/14/19 History lisinopril 20 mg PO DAILY 02/06/19 11/14/19 History metformin 500 mg PO BID 02/06/19 11/14/19 History acetaminophen [Tylenol Extra 1,000 mg PO Q8 PRN 10/26/19 11/14/19 History Strength] carbamazepine 200 mg PO HS 10/26/19 11/14/19 History levothyroxine 112 mcg PO DAILY 10/26/19 11/14/19 History Patient History Medical History Diabetes mellitus Essential (primary) hypertension Hypothyroidism Surgical History History of facial fracture repair Orbital bone History of open reduction and internal fixation (ORIF) procedure RIGHT ANKLE Social History (Updated 11/13/19 @ 13:54 by Natalie Guidry PA-C) Preferred Language: Hungarian Communication Ability: Effective Vessel Welder Required: No Beliefs That Will Affect Care: None Current Living Situation: Other Current Living Situation Comment: [facility] Other Information That Helps Us Care for You: No Feels Safe at Home: Yes Smoking Status: Former smoker Do You Dip or Chew Tobacco: No ; Second Hand Exposure: No ; Tobacco Cessation Education Requested by Patient: No Hx Alcohol Use: No Hx Substance Use: No Review of Systems Review of Systems: Constitutional: No fever, sweats or chills Eyes: No diplopia, no worsening or blurred vision ENT: normal hearing, no trouble swallowing Respiratory: No cough, sputum, dyspnea at rest or on exertion Cardiovascular: No chest pain, tightness or palpitations Abdomen: No pain, nausea, vomiting, diarrhea or constipation Musculoskeletal: No joint pain, calf pain, swelling Neurologic: No weakness, numbness/tingling, or balance problems Psychiatric: No anxiety or depression Skin: No rash or itch Physical Exam Physical Exam: General: male, awake, alert, no apparent distress Head: Normocephalic, atraumatic ENT: PERRL, EOMI, no pharyngeal exudate, mucous membranes moist Chest: Clear to auscultation, on room air, no adventitious breath sounds Cardiac: Regular rate and rhythm, no murmur, no JVD, normal peripheral pulses, good capillary refill Abdominal: NABS x 4 quadrants, soft, + mildly distended, nontender to palpation, no rebound, guarding or tenderness Extremities: + RLE wrapped in TERESE, icepack, + peripheral numbness to light touch, +pt able to wiggle toes on command. Otherwise normal inspection, no peripheral edema or erythema, calfs nontender to palpation Psych: Normal mood and affect Neuro: AAO x 3, no gross motor deficits, speech is clear, no peripheral sensory deficits Results & Data ([facility]) Vital Signs (Past 12 Hours) Vital Signs Temp Pulse Pulse Pulse Resp BP Pulse Ox 11/14/19 16:57 36.3 C L 73 16 154/95 H 97 11/14/19 16:34 36.3 C L 81 16 124/81 95 11/14/19 15:40 36.7 C 78 16 125/79 95 11/14/19 15:30 83 16 131/81 97 11/14/19 15:20 92 H 16 147/88 H 96 11/14/19 15:10 82 16 144/89 H 99 11/14/19 15:04 36.0 C L 88 16 128/88 100 11/14/19 08:01 36.5 C 59 L 20 155/101 H 99 PG Care Time/CCT Total # of Minutes Spent Total Time Spent with Patient: Total time spent is greater than 50% in coordination of care (as documented) at patient's floor/unit and/or counseling patient: Coding Level of Care Code 53682 Inpt Consult Level 3 Diagnoses Deep postoperative wound infection T81.42XA Fracture of distal fibula S82.839A Hypothyroidism E03.9 Diabetes mellitus E11.9 Essential (primary) hypertension I10 DVT prophylaxis Z29.9
[2019-11-14] MEDS: ACETAMINOPHEN 500 MG TAB PO SCH ×2 (17:27→22:31)
[2019-11-14] MEDS ORDERED: ERGOCALCIFEROL 50,000 UNITS CAP PO ONE (18:00)
[2019-11-14] MEDS ORDERED: HydrALAZINE HCL 20 MG/ML VIAL IV PRN (18:14)
[2019-11-14] MEDS: INSULIN ASPART 100 UNITS/ML 3 ML PEN SC SCH ×2 (18:51→21:03)
[2019-11-14] MEDS: OXYCODONE HCL IR 5 MG TAB (IMMEDIATE RELEASE) PO PRN (19:42)
--- NOTE | 2019-11-14 19:58 | Progress Notes ---
DATE: 11/14/2019 The patient is resting comfortably in bed. He is having some discomfort. He is afebrile. His vital signs are stable. His blood pressure is a little bit high. Cultures and pathology are pending. Appreciate medicine input. He can faintly wiggle his toes. He reports continued numbness in the foot. I think his block is still working. All toes are warm with capillary refill less than 2 seconds. He is educated about the surgical findings and the plan. Continue antibiotics and we will follow up with him tomorrow.
[2019-11-14] MEDS: PIPERACILLIN/TAZOBACTAM 3.375 GM in DEXTROSE 5% 100 ML IV SCH (20:27)
[2019-11-14] MEDS: DOCUSATE SODIUM 100 MG CAP PO SCH (20:28)
[2019-11-14] MEDS: SENNA 8.6 MG TAB PO SCH (20:28)
[2019-11-14] MEDS: carBAMazepine 200 MG TABLET PO SCH (20:28)
--- NOTE | 2019-11-14 20:37 | Pharmacy Report ---
Pharmacy Abx Initial Consult - Date of Service November 14, 2019 - Pharmacy Dosing Scope Date of Consult: 11/14/2019 Consultation requested by: Dr. Guerrero Pharmacy is consulted to initiate Vancomycin and Zosyn IV dosing therapy, order appropriate labs and adjust drug dose/frequency. - Subjective The patient is a 64 year old M admitted on 11/14/19 15:15. - Objective Height: 6 ft Weight: 113.852 kg Vital Signs (Past 12hrs): Vital Signs Temp Pulse Pulse Resp BP Pulse Ox 11/14/19 19:05 36.4 C L 78 16 159/100 H 97 11/14/19 18:05 36.3 C L 92 H 16 170/103 H 97 11/14/19 16:57 36.3 C L 73 16 154/95 H 97 11/14/19 16:34 36.3 C L 81 16 124/81 95 11/14/19 15:40 36.7 C 78 16 125/79 95 11/14/19 15:30 83 16 131/81 97 11/14/19 15:20 92 H 16 147/88 H 96 11/14/19 15:10 82 16 144/89 H 99 11/14/19 15:04 36.0 C L 88 16 128/88 100 Lab Results (24hrs): Laboratory Tests (24 Hours) 11/14/19 07:42 Creatinine 1.06 Est Cr Clr Drug Dosing 90.5 Micro Results: 11/14/19 14:00 Gram Stain - Final Ankle,Right Aerobic and Anaerobic Culture - Pending 11/14/19 14:18 Gram Stain - Pending Ankle,Right Aerobic and Anaerobic Culture - Pending - Risk Factors for Resistance * Incarcerated * Antimicrobial use within the last 90 days: * Doxycycline - Assessment & Plan Assessment 64 year old M s/p R ankle ORIF on 02/07/2019 with multiple complications Admitted for R ankle hardware removal on 11/13 Renal function at baseline, afebrile Plan for Vanc + Zosyn pending OR cultures Plan Vancomycin + Zosyn for treatment of suspected osteomyelitis Vancomycin IV * Estimated PK Parameters: Vd 0.57 L/kg, Stephan 0.08 hr-1, t1/2 ~9 hrs * Loading dose: 2500 mg (22 mg/kg) * Maintenance dose: 1750 mg IV (15 mg/kg) every 10 hours * Dosing is aggressive for patient in order to get trough levels therapeutic more rapidly, may need to back off dose after trough * Goal trough: 15 to 20 mcg/mL * Trough level ordered for 11/16/2019 prior to the 5th total dose to reflect steady state levels Piperacillin/tazobactam * 4.5 g bolus administered over 30 minutes, then 3.375 g IV extended infusion every 8 hours for CrCl greater than 20 mL/min Pharmacy will continue to follow and will adjust dose/frequency as necessary. Thank you.
[2019-11-15] MEDS: OXYCODONE HCL IR 5 MG TAB (IMMEDIATE RELEASE) PO PRN ×6 (00:15→23:27)
[2019-11-15] MEDS ORDERED: VANCOMYCIN HCL 1,750 MG in SODIUM CHLORIDE 0.9% 500 ML IV SCH ×2 (02:00→14:00)
[2019-11-15] MEDS: SODIUM CHLORIDE 0.9% 1000ML 1,000 ML IV SCH (03:16)
[2019-11-15] MEDS: PIPERACILLIN/TAZOBACTAM 3.375 GM in DEXTROSE 5% 100 ML IV SCH ×3 (04:19→20:37)
[2019-11-15 05:30] LABS: Hematocrit (blood only) 35.1 % (42-52); Hemoglobin 11.8 g/dL (14.0-18.0); Mean Corpuscular Hemoglobin 29.6 pg (25-34); Mean Corpuscular Hgb Conc 33.6 g/dL (32-36); Mean Platelet Volume 8.8 fL (7.4-10.4); Platelet Count 280 K/uL (130-400); RDW Coefficient of Variation 13.9 % (11.5-14.5); RDW Standard Deviation 44.8 fL (36.4-46.3); Red Blood Count 3.99 M/uL (4.7-6.1)
[2019-11-15] MEDS: LEVOTHYROXINE SODIUM 112 MCG TABLET PO SCH (05:38)
[2019-11-15] MEDS: ACETAMINOPHEN 500 MG TAB PO SCH ×3 (05:38→20:38)
[2019-11-15 06:12] LABS: BUN Creatinine Ratio 11.8 (10-20); Calcium 8.7 mg/dl (8.5-10.1); Creatinine Clr Calc Pharmacy 78.6 ml/min; Est GFR (African American) 71.7; Est GFR (Non-African American) 61.8; Potassium 3.8 mmol/L (3.5-5.1)
[2019-11-15 06:21] LABS: Estimated Average Glucose 126 mg/dl
--- NOTE | 2019-11-15 07:27 | Anesthesiology Progress Note ---
Date of Service November 15, 2019 Anesthesia Post Procedure Vital Signs Vital Signs: Temp Pulse Pulse Pulse Resp BP Pulse Ox 11/15/19 03:13 37.1 C 79 16 149/96 H 96 11/15/19 00:12 36.7 C 83 16 157/93 H 97 11/14/19 19:05 36.4 C L 78 16 159/100 H 97 11/14/19 18:05 36.3 C L 92 H 16 170/103 H 97 11/14/19 16:57 36.3 C L 73 16 154/95 H 97 11/14/19 16:34 36.3 C L 81 16 124/81 95 11/14/19 15:40 36.7 C 78 16 125/79 95 11/14/19 15:30 83 16 131/81 97 11/14/19 15:20 92 H 16 147/88 H 96 11/14/19 15:10 82 16 144/89 H 99 11/14/19 15:04 36.0 C L 88 16 128/88 100 11/14/19 08:01 36.5 C 59 L 20 155/101 H 99 Pain Intensity Right Ankle: Pain Intensity: 8 Notes Mental Status: alert / awake / arousable Patient Amnestic to Procedure: Yes Nausea / Vomiting: adequately controlled Pain: adequately controlled Airway Patency, RR, SpO2: stable & adequate BP & HR: stable & adequate Hydration State: stable & adequate Anesthetic Complications: no major complications apparent
[2019-11-15] MEDS: lisinopriL 20 MG TAB PO SCH (07:35)
[2019-11-15] MEDS: ASPIRIN 81 MG ECTAB PO SCH (07:36)
[2019-11-15] MEDS: ENOXAPARIN INJ 40 MG/0.4 ML SYR SQ SCH (07:36)
[2019-11-15] MEDS: MULTIVITAMIN TAB PO SCH (07:36)
[2019-11-15] MEDS: CHOLECALCIFEROL 1,000 UNITS 25 MCG TAB PO SCH (07:37)
[2019-11-15] MEDS: ATORVASTATIN 40 MG TAB PO SCH (07:37)
[2019-11-15] MEDS: DOCUSATE SODIUM 100 MG CAP PO SCH ×2 (07:37→20:39)
[2019-11-15] MEDS: INSULIN ASPART 100 UNITS/ML 3 ML PEN SC SCH ×4 (08:44→20:41)
--- NOTE | 2019-11-15 09:09 | Pharmacy Report ---
Glycemic Control Consultation - Date of Service November 15, 2019 - Scope Scope: Glycemic Pharmacist consulted for glycemic control and to write orders per [facility] inpatient glycemic control protocol. - Objective Weight: 113.852 kg Accuchecks BSG (last 24hrs): 11/14/19 11/14/19 11/14/19 09:06 15:13 17:30 Glucose POC Glucose 94 94 108 H 11/14/19 11/15/19 11/15/19 20:40 04:49 08:07 Glucose 162 H POC Glucose 96 139 H Laboratory Data (last 24hrs): 11/15/19 04:49 Potassium 3.8 Carbon Dioxide 25 Anion Gap 5.0 Creatinine 1.22 Est Cr Clr Drug Dosing 78.6 HbA1c: Hemoglobin A1c 6.0 % (4.5-5.6) H 11/15/19 04:49 - Recent Pertinent Medications Outpatient Anti-diabetic Regimen: * metformin 500 mg bid * A1c = 6.0 % 11/15/19 The patient is currently receiving: * Correctional Insulin: Novolog Correction per scale ACHS Goal Range: Low 110 mg/dL - High 140 mg/dL Correction Factor: 20 mg/dL/unit * Prandial insulin: Per carb ratio of 1 unit per 8 grams CHO consumed Risk Factors for Insulin Resistance: * Steroids: Dex 4 mg iv x 1 intraop * Recent Surgery: POD 1 * Diet: T2DM - Assessment & Plan Assessment & Plan: ASSESSMENT: * 64 year old male now s/p right ankle hardware removal. Currently receiving vancomycin/zosyn. Type 2 diabetic managed only on metformin at home. Pharmacy consulted for glycemic management postop * Appears patient received steroids intraop yesterday - however BSGs stable at this time * Plan to continue with only bolus insulin. Will reevaluate if need for basal insulin later PLAN FOR INPATIENT GLYCEMIC CONTROL: * Holding outpatient oral diabetes medications * Basal insulin * Lantus- hold * Bolus insulin * NovoLog per scale ACHS or Q6hrs while NPO * Goal Range: Low 110 mg/dL - High 140 mg/dL * Correction Factor: 20 mg/dL/unit * Nutritional / Prandial insulin per carb ratio of 1 unit per 8 grams CHO consumed * Please note that the plan above was derived based on current level of insulin resistance and hospital stress. These recommendations are appropriate for inpatient admission only. Plan of care upon discharge will need to be reassessed to avoid potential outpatient hypo/hyperglycemia. Thank you.
--- NOTE | 2019-11-15 10:21 | Orthopedic Progress Note ---
Date of Service November 15, 2019 Assessment & Plan (1) Diabetes mellitus: Management as per medicine and pharmacy glycemic index consult. Present on Admission?: Yes (2) Essential (primary) hypertension: Present on Admission?: Yes (3) Deep postoperative wound infection: Cultures are growing out staph. Sensitivities pending. Patient informed. Partial weightbearing with splint and walker. Out of bed several times per day with leg elevated. We talked about expectations for the future. 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 There is a good likelihood that this will happen. Ankle pain should be improved and there should be less enlargement or swelling. We can give him therapy exercises to do. I can read recommend isolation for him due to his infection. We talked about the Lovenox injections in the foot pumps. Elevate the leg. Discussed the infection and treatment. Recommend placement of PICC line and went over informed consent with him. I think he will likely need at least 6 weeks of intravenous antibiotics followed by oral antibiotics. We will also need to get him into a fracture boot. Discussed with him that the ankle is weakened and there is a possibility of reinjury. Walker with partial weight at this point. Will check the wound tomorrow and try to transition to a fracture boot. Continue IV antibiotics. Recheck a vitamin D level was within normal limits. Present on Admission?: Yes (4) Osteomyelitis: Present on Admission?: Yes (5) Status post ORIF of fracture of ankle: Present on Admission?: Yes Admission and Anticipated Discharge Date Admission Date: November 14, 2019 Subjective Patient reports he had some pain overnight which is improved today. He requested to be in isolation when he returns to the institution. He will likely need long-term intravenous antibiotics which would require him to be at the [facility]. Physical Exam Physical Exam: Foot is warm with capillary refill less than 2 seconds. Must of had some bleeding through his bandage which is been reinforced. He has 5- out of 5 toe dorsiflexion strength and 5 out of 5 toe plantarflexion strength. There is no significant swelling his sensation is intact in the toes. Results & Data ([facility]) Vital Signs (Past 12 Hours) Vital Signs Temp Pulse Resp BP Pulse Ox 11/15/19 07:41 36.6 C 67 16 164/83 H 94 11/15/19 03:13 37.1 C 79 16 149/96 H 96 11/15/19 00:12 36.7 C 83 16 157/93 H 97
--- NOTE | 2019-11-15 12:30 | Hospitalist Progress Note ---
Date of Service November 15, 2019 Assessment & Plan (1) Deep postoperative wound infection: * POD #1 s/p RIGHT ankle hardware removal, I&D, Stimulan abx bead placement with Dr. Guerrero on 11/13. EBL 15mL * Pre-op h/h 13.6/38.9 * H/h stable at 11.8/35.1 -- likely acute blood loss following surgery as well as dilutional * Pain management/PT/OT/DVT prophylaxis per primary team * Culture growing staph aureus, sensitivities to follow * Likely to need prolonged abx -- 6 weeks -- PICC line consent obtained by primary and placed this afternoon * CBC in AM (2) Fracture of distal fibula: * See above (3) Essential (primary) hypertension: * Chronic. Elevated slightly at 164/83 -- likely secondary to pain * Continue home lisinopril 20mg * Continue to monitor -- hydralazine prn (4) Hypothyroidism: * Chronic. Stable. TSH in AM * Continue levothyroxine 112 mcg daily (5) Diabetes mellitus: * Hold home metformin while inpatient * BSG AC/HS, ISS while inpatient * Pharmacy consulted for glycemic management * Repeat A1c 6.0 -- follow up outpatient -- per discussion with patient, he has not been so compliant with taking as prescribed. Encouraged better compliance to prevent complications/wound healing * Patient to be on isolation on return to correctional facility fo * Consider wound consultation for follow up (6) Constipation: * Bowel regimen per primary -- patient without BM and hypoactive BS on exam --> KUB ordered (7) Hypokalemia: * K 3.4 on admission * Improved to 3.8 * Repeat in AM (8) DVT prophylaxis: * Tay Roberson Thank you for involving us in the care of Mr. Faust. Please do not hesitate to call with questions or concerns. Medicine service will follow along. Admission and Anticipated Discharge Date Admission Date: November 14, 2019 Supervising Physician Co-Signing Physician Notes IRVIN Supervision Note: I did not personally see or examine the patient today, but I verified all montgomery points of IRVIN Rogel's assessment and plan with the following exceptions/additions: None Subjective Patient feeling well. Pain has been controlled. Eating/drinking without difficulty. Does have some dry mouth today. Has passed gas x 1, but has not had a bowel movement. Denies abdominal pain at this time, but was nauseous and vomited earlier today. He states he is aware he will be discharged with IV antibiotics and consent has already been provided. Discussed A1c results. Patient admits that he typically takes just one 500mg tablet or none of his metformin regularly and is hoping to be able to come off of them altogether. Discussed that he should take his 500mg twice daily and have this repeated in three months to see if he is able to back down to once daily dosing vs an injectable (as he inquired about these during our conversation). Discussed nursing home complications of uncontrolled/untreated diabetes and poor wound healing/vascular complications. Denies any fevers, chills, headache, chest pain, shortness of breath, dysuria at this time. Review of Systems Review of Systems: All systems reviewed & are unremarkable except as noted in HPI & below Physical Exam Constitutional: WD/WN, vitals as above cooperative and comfortable; no acute distress Eyes: + anicteric sclerae and PERRL ENMT: Ears: no hearing impairment Nose: no external nose abnormality Neck: trachea midline, no thyromegaly Respiratory: normal respiratory effort, lungs clear to auscultation Cardiovascular: RRR, no murmur, no edema Extremities: normal capillary refill; no calf tenderness 2+ pt, dp pulses bilaterally Gastrointestinal (Abdomen): Inspection/Auscultation: + abdomen distended and + hypoactive bowel sounds Percussion/Palpation: abdomen nontender, no guarding, abdomen not rigid and no hepatosplenomegaly Musculoskeletal: no cyanosis or clubbing, extremities motor strength 5/5 Skin: Dressing c/d/i to RLE Neurologic: patellar DTR's 2+ bilat, sensation intact Psychiatric: A+Ox3, euthymic affect Lymphatic: no cervical or axillary lymphadenopathy Results & Data ([facility]) Vital Signs (Past 12 Hours) Vital Signs Temp Pulse Resp BP Pulse Ox 11/15/19 07:41 36.6 C 67 16 164/83 H 94 11/15/19 03:13 37.1 C 79 16 149/96 H 96 Laboratory Results 11/15/19 11/15/19 11/15/19 Range/Units 12:11 08:07 04:49 WBC (4.8-10.8) K/uL RBC (4.7-6.1) M/uL Hgb (14.0-18.0) g/dL Hct (42-52) % MCV (80-100) fL MCH (25-34) pg MCHC (32-36) g/dL RDW Std Deviation (36.4-46.3) fL RDW Coeff of Brittney (11.5-14.5) % Plt Count (130-400) K/uL MPV (7.4-10.4) fL Sodium (136-145) mmol/L Potassium (3.5-5.1) mmol/L Chloride (98-107) mmol/L Carbon Dioxide (21-32) mmol/L Anion Gap (3-11) BUN (7-18) mg/dl Creatinine (0.6-1.4) mg/dl Est Cr Clr Drug Dosing ml/min Est GFR ( Amer) Est GFR (Non-Af Amer) BUN/Creatinine Ratio (10-20) Glucose (70-99) mg/dl POC Glucose 95 139 H (70-99) mg/dl Estimat Average Glucose 126 mg/dl Hemoglobin A1c 6.0 H (4.5-5.6) % Calcium (8.5-10.1) mg/dl Nasal Screen MRSA (PCR) (Negative) 11/15/19 11/15/19 11/14/19 Range/Units 04:49 04:49 20:40 WBC 8.40 (4.8-10.8) K/uL RBC 3.99 L (4.7-6.1) M/uL Hgb 11.8 L (14.0-18.0) g/dL Hct 35.1 L (42-52) % MCV 88.0 (80-100) fL MCH 29.6 (25-34) pg MCHC 33.6 (32-36) g/dL RDW Std Deviation 44.8 (36.4-46.3) fL RDW Coeff of Brittney 13.9 (11.5-14.5) % Plt Count 280 (130-400) K/uL MPV 8.8 (7.4-10.4) fL Sodium 138 (136-145) mmol/L Potassium 3.8 (3.5-5.1) mmol/L Chloride 108 H (98-107) mmol/L Carbon Dioxide 25 (21-32) mmol/L Anion Gap 5.0 (3-11) BUN 14 (7-18) mg/dl Creatinine 1.22 (0.6-1.4) mg/dl Est Cr Clr Drug Dosing 78.6 ml/min Est GFR ( Amer) 71.7 Est GFR (Non-Af Amer) 61.8 BUN/Creatinine Ratio 11.8 (10-20) Glucose 162 H (70-99) mg/dl POC Glucose 96 (70-99) mg/dl Estimat Average Glucose mg/dl Hemoglobin A1c (4.5-5.6) % Calcium 8.7 (8.5-10.1) mg/dl Nasal Screen MRSA (PCR) (Negative) 11/14/19 11/14/19 11/14/19 Range/Units 17:30 15:50 15:13 WBC (4.8-10.8) K/uL RBC (4.7-6.1) M/uL Hgb (14.0-18.0) g/dL Hct (42-52) % MCV (80-100) fL MCH (25-34) pg MCHC (32-36) g/dL RDW Std Deviation (36.4-46.3) fL RDW Coeff of Brittney (11.5-14.5) % Plt Count (130-400) K/uL MPV (7.4-10.4) fL Sodium (136-145) mmol/L Potassium (3.5-5.1) mmol/L Chloride (98-107) mmol/L Carbon Dioxide (21-32) mmol/L Anion Gap (3-11) BUN (7-18) mg/dl Creatinine (0.6-1.4) mg/dl Est Cr Clr Drug Dosing ml/min Est GFR ( Amer) Est GFR (Non-Af Amer) BUN/Creatinine Ratio (10-20) Glucose (70-99) mg/dl POC Glucose 108 H 94 (70-99) mg/dl Estimat Average Glucose mg/dl Hemoglobin A1c (4.5-5.6) % Calcium (8.5-10.1) mg/dl Nasal Screen MRSA (PCR) Negative (Negative) PG Care Time/CCT Total # of Minutes Spent Total Time Spent with Patient: Total time spent is greater than 50% in coordination of care (as documented) at patient's floor/unit and/or counseling patient: Coding Level of Care Code 37691 Subseq Hosp Care Lvl 2 Diagnoses Deep postoperative wound infection T81.42XA Fracture of distal fibula S82.839A Essential (primary) hypertension I10 Hypothyroidism E03.9 Diabetes mellitus E11.9 Constipation K59.00 Hypokalemia E87.6 DVT prophylaxis Z29.9
[2019-11-15] MEDS ORDERED: VANCOMYCIN TROUGH ONE (13:30)
--- NOTE | 2019-11-15 13:36 | XRay Report ---
KUB HISTORY: hypoactive bowel sounds COMPARISON: None. FINDINGS: Mildly distended gas-filled loop of bowel the abdominal right lower quadrant measuring up t o 6.2 cm is suggestive of large bowel and may reflect tortuous sigmoid. There is moderate fecal reten tion of the right hemicolon. Bowel gas pattern overall is nonobstructive. Moderate distention of the stomach. There is no organomegaly. Pelvic basin calcifications are suggestive of phleboliths. The re nal shadows are obscured by bowel gas. No definite renal calculi. Cardiomegaly. No pneumoperitoneum o r pneumatosis. No fracture. IMPRESSION: 1. Moderate fecal retention with nonobstructive bowel gas pattern. 2. Cardiomegaly. ACT 112: Negative or not required by law. The above report was generated using voice recognition software. It may contain grammatical, syntax o r spelling errors. Electronically signed by: Alexi Bertrand M.D. 11/15/2019 1:35 PM
[2019-11-15] MEDS ORDERED: Nursing to Pharmacy Communication ONE (15:26)
[2019-11-15] MEDS: VANCOMYCIN HCL 1,750 MG in SODIUM CHLORIDE 0.9% 500 ML IV SCH (15:44)
--- NOTE | 2019-11-15 16:12 | XRay Report ---
XR chest 1V portable CLINICAL HISTORY: CONFIRM PICC PLACEMENT - NO VPS BULLSEYE COMPARISON STUDY: No previous studies for comparison. FINDINGS: Right-sided PICC catheter coiled within the medial right subclavian vein. No evidence for p neumothorax. IMPRESSION: Right sided PICC catheter coiled within the medial right subclavian vein. No evidence fo r pneumothorax. ACT 112: Negative or not required by law. The above report was generated using voice recognition software. It may contain grammatical, syntax or spelling errors. Electronically signed by: Seng Stanton M.D. 11/15/2019 4:11 PM
[2019-11-15] MEDS ORDERED: SOD PHOSPHATE/SOD BIPHOSPHATE ENEMA 132 ML BTL PR PRN (17:04)
[2019-11-15] MEDS ORDERED: POLYETHYLENE (MIRALAX) 17 GM PACK PO PRN (17:04)
[2019-11-15] MEDS: MAGNESIUM HYDROXIDE SUSP 30 ML UDC PO PRN (18:31)
[2019-11-15] MEDS: carBAMazepine 200 MG TABLET PO SCH (20:39)
[2019-11-15] MEDS: SENNA 8.6 MG TAB PO SCH (20:39)
[2019-11-16] MEDS: VANCOMYCIN HCL 1,750 MG in SODIUM CHLORIDE 0.9% 500 ML IV SCH (04:48)
[2019-11-16] MEDS: PIPERACILLIN/TAZOBACTAM 3.375 GM in DEXTROSE 5% 100 ML IV SCH (04:49)
[2019-11-16] MEDS: OXYCODONE HCL IR 5 MG TAB (IMMEDIATE RELEASE) PO PRN ×5 (05:12→21:34)
[2019-11-16] MEDS: LEVOTHYROXINE SODIUM 112 MCG TABLET PO SCH (05:12)
[2019-11-16] MEDS: ACETAMINOPHEN 500 MG TAB PO SCH ×3 (05:12→21:33)
[2019-11-16 05:37] LABS: Mean Corpuscular Hemoglobin 29.8 pg (25-34); Mean Corpuscular Hgb Conc 33.3 g/dL (32-36); Mean Corpuscular Volume 89.4 fL (80-100); Mean Platelet Volume 8.5 fL (7.4-10.4); Platelet Count 270 K/uL (130-400); RDW Coefficient of Variation 13.9 % (11.5-14.5); RDW Standard Deviation 45.9 fL (36.4-46.3); Red Blood Count 3.69 M/uL (4.7-6.1); White Blood Count 6.04 K/uL (4.8-10.8)
[2019-11-16 05:57] LABS: BUN Creatinine Ratio 10.5 (10-20); Calcium 8.4 mg/dl (8.5-10.1); Creatinine Clr Calc Pharmacy 90.5 ml/min; Est GFR (African American) 84.9; Est GFR (Non-African American) 73.3; Potassium 3.5 mmol/L (3.5-5.1)
[2019-11-16 06:07] LABS: Thyroid Stimulating Hormone 0.94 uIu/ml (0.300-4.500)
[2019-11-16] MEDS ORDERED: VANCOMYCIN TROUGH SCH ×2 (07:30→15:30)
[2019-11-16] MEDS: CHOLECALCIFEROL 1,000 UNITS 25 MCG TAB PO SCH (09:39)
[2019-11-16] MEDS: ASPIRIN 81 MG ECTAB PO SCH (09:39)
[2019-11-16] MEDS: DOCUSATE SODIUM 100 MG CAP PO SCH ×2 (09:39→19:42)
[2019-11-16] MEDS: MULTIVITAMIN TAB PO SCH (09:39)
[2019-11-16] MEDS: lisinopriL 20 MG TAB PO SCH (09:39)
[2019-11-16] MEDS: ENOXAPARIN INJ 40 MG/0.4 ML SYR SQ SCH (09:39)
[2019-11-16] MEDS: ATORVASTATIN 40 MG TAB PO SCH (09:39)
[2019-11-16] MEDS: INSULIN ASPART 100 UNITS/ML 3 ML PEN SC SCH ×4 (09:45→20:57)
--- NOTE | 2019-11-16 11:41 | Progress Notes ---
DATE: 11/16/2019 Some discomfort. Pain otherwise is reasonably well controlled. He is afebrile with stable vital signs. Dressing is changed. There is some bleeding on the dressings, but currently no active drainage and no fluctuance along the wound. Foot is warm with good capillary refill. He has good ankle and toe range of motion with normal plantar flexion and dorsiflexion strength. Dorsalis pedis is 1+. A new dressing is applied with posterior splint after cleaning the leg. We will get him fitted for a fracture boot. He is to be partial weightbearing approximately 50% with a walker. He can remove the boot when he is in bed, but is not to walk without the boot. He may do ankle range of motion. We will discuss with medicine and pharmacy regarding the proper antibiotics. The PICC line was just readjusted today. Continue DVT prophylaxis. Will need long-term IV antibiotics. We will work with medicine and pharmacy to determine appropriate antibiotic and dosing. Cultures have grown out methicillin-sensitive staph.
--- NOTE | 2019-11-16 12:12 | XRay Report ---
KUB HISTORY: Acute generalized abdominal distention with clinical concern for obstruction r/o obstructio n COMPARISON: KUB 11/15/2019 FINDINGS: Air-filled mildly dilated loops of small bowel within the abdominal left lower quadrant alisa sure up to 3.2 cm. There is resolution of the previously noted distended air-filled bowel the right l ower quadrant. No high-grade small bowel obstruction. Moderate to extensive fecal retention throughou t the colon. Cardiomegaly. There is no organomegaly. No renal calculi. No ureteral calculi. No pneum operitoneum or pneumatosis. No fracture. IMPRESSION: 1. Mildly dilated air-filled loops of small bowel within the abdominal left lower quadrant are likely physiologic. A mild enteritis or ileus could appear similarly. No high-grade small bowel obstruction , pneumatosis or pneumoperitoneum. 2. Moderate to extensive fecal retention. ACT 112: Negative or not required by law. The above report was generated using voice recognition software. It may contain grammatical, syntax o r spelling errors. Electronically signed by: Alexi Bertrand M.D. 11/16/2019 12:10 PM
[2019-11-16] MEDS: MAGNESIUM HYDROXIDE SUSP 30 ML UDC PO PRN (12:27)
[2019-11-16] MEDS ORDERED: VANCOMYCIN TROUGH ONE ×2 (13:30→15:30)
--- NOTE | 2019-11-16 14:04 | Hospitalist Progress Note ---
Date of Service November 16, 2019 Assessment & Plan (1) Deep postoperative wound infection: * POD #2 s/p RIGHT ankle hardware removal, I&D, Stimulan abx bead placement with Dr. Guerrero on 11/13. EBL 15mL * Pre-op h/h 13.6/38.9 * H/h stable at -- likely acute blood loss anemia following surgery as well as dilutional * Pain management/PT/OT/DVT prophylaxis per primary team * Culture growing staph aureus, pansensitive except to tetracycline --> discussed with primary team. Plan for 6 weeks Rocephin 2gm IV Q24h -- I spoke with case management and will add to d/c instructions. PICC line in place -- was readjusted today (2) Fracture of distal fibula: * See above (3) Essential (primary) hypertension: * Chronic. Elevated slightly at 154/85 -- likely secondary to pain * Continue home lisinopril 20mg (4) Hypothyroidism: * Chronic. Stable. TSH 0.940 * Continue levothyroxine 112 mcg daily (5) Diabetes mellitus: * Hold home metformin while inpatient * BSG AC/HS, ISS while inpatient * Pharmacy consulted for glycemic management * Repeat A1c 6.0 -- follow up outpatient -- per discussion with patient, he has not been so compliant with taking as prescribed. Encouraged better compliance to prevent complications/wound healing * Patient to be on isolation on return to [facility] * Consider wound consultation for follow up (6) Constipation: * Bowel regimen per primary -- patient without BM and hypoactive BS on exam --> KUB ordered with significant fecal retention. No evidence of SBO * Ordered dulcolax suppository -- discussed with patient as he was agreeable * If unsuccessful, enema ordered prn * Continue senna/docusate at night and add an extra dose in the morning * Increase MiraLAX to 4 times daily (7) Hypokalemia: * K 3.4 on admission, replaced * Continues to be stable --> 3.5 * Repeat in AM (8) DVT prophylaxis: * Tay Roberson Thank you for involving us in the care of Mr. Faust. Please do not hesitate to call with questions or concerns. Medicine service will follow along. Admission and Anticipated Discharge Date Admission Date: November 14, 2019 Supervising Physician Co-Signing Physician Notes PA Supervision Note: I did not personally see or examine the patient today, but I verified all [place] points of IRVIN Rogel's assessment and plan with the following exceptions/additions: None Subjective Patient doing well today. Still without BM but does have some nausea. Denies any abdominal pain today. Discussed trying suppository to relief constipation given pain medication usage. Patient agreeable to the plan for suppository. He states he has been up more today walking around, but it does worsen the pain in his ankle. Plans for discharge tomorrow on rocephin IV for 6 weeks. Denies fever, chills, chest pain, shortness of breath, numbness/tingling, dysuria at this time. Review of Systems Review of Systems: All systems reviewed & are unremarkable except as noted in HPI & below Physical Exam Physical Exam: Constitutional WD/WN, vitals as above cooperative and comfortable; no acute distress Eyes + anicteric sclerae and PERRL ENMT Ears: no hearing impairment Nose: no external nose abnormality Neck trachea midline, no thyromegaly Respiratory normal respiratory effort, lungs clear to auscultation Cardiovascular RRR, no murmur, no edema Extremities: normal capillary refill; no calf tenderness 2+ pt, dp pulses bilaterally Gastrointestinal (Abdomen) Inspection/Auscultation: + abdomen distended and + hypoactive bowel sounds Percussion/Palpation: abdomen nontender, no guarding, abdomen not rigid and no hepatosplenomegaly Musculoskeletal no cyanosis or clubbing, extremities motor strength 5/5 NVI Skin Dressing c/d/i to RLE Neurologic patellar DTR's 2+ bilat, sensation intact Psychiatric A+Ox3, euthymic affect Lymphatic no cervical or axillary lymphadenopathy Results & Data ([facility]) Vital Signs (Past 12 Hours) Vital Signs Temp Pulse Resp BP Pulse Ox 11/16/19 07:13 36.7 C 69 16 122/66 93 Laboratory Results 11/16/19 11/16/19 11/16/19 Range/Units 16:57 12:20 08:06 WBC (4.8-10.8) K/uL RBC (4.7-6.1) M/uL Hgb (14.0-18.0) g/dL Hct (42-52) % MCV (80-100) fL MCH (25-34) pg MCHC (32-36) g/dL RDW Std Deviation (36.4-46.3) fL RDW Coeff of Brittney (11.5-14.5) % Plt Count (130-400) K/uL MPV (7.4-10.4) fL Sodium (136-145) mmol/L Potassium (3.5-5.1) mmol/L Chloride (98-107) mmol/L Carbon Dioxide (21-32) mmol/L Anion Gap (3-11) BUN (7-18) mg/dl Creatinine (0.6-1.4) mg/dl Est Cr Clr Drug Dosing ml/min Est GFR ( Amer) Est GFR (Non-Af Amer) BUN/Creatinine Ratio (10-20) Glucose (70-99) mg/dl POC Glucose 124 H 119 H 102 H (70-99) mg/dl Calcium (8.5-10.1) mg/dl TSH (0.300-4.500) uIu/ml 11/16/19 11/16/19 11/15/19 Range/Units 04:53 04:53 20:27 WBC 6.04 (4.8-10.8) K/uL RBC 3.69 L (4.7-6.1) M/uL Hgb 11.0 L (14.0-18.0) g/dL Hct 33.0 L (42-52) % MCV 89.4 (80-100) fL MCH 29.8 (25-34) pg MCHC 33.3 (32-36) g/dL RDW Std Deviation 45.9 (36.4-46.3) fL RDW Coeff of Brittney 13.9 (11.5-14.5) % Plt Count 270 (130-400) K/uL MPV 8.5 (7.4-10.4) fL Sodium 140 (136-145) mmol/L Potassium 3.5 (3.5-5.1) mmol/L Chloride 109 H (98-107) mmol/L Carbon Dioxide 28 (21-32) mmol/L Anion Gap 3.0 (3-11) BUN 11 (7-18) mg/dl Creatinine 1.06 (0.6-1.4) mg/dl Est Cr Clr Drug Dosing 90.5 ml/min Est GFR ( Amer) 84.9 Est GFR (Non-Af Amer) 73.3 BUN/Creatinine Ratio 10.5 (10-20) Glucose 112 H (70-99) mg/dl POC Glucose 164 H (70-99) mg/dl Calcium 8.4 L (8.5-10.1) mg/dl TSH 0.940 (0.300-4.500) uIu/ml PG Care Time/CCT Total # of Minutes Spent Total Time Spent with Patient: Total time spent is greater than 50% in coordination of care (as documented) at patient's floor/unit and/or counseling patient: Coding Level of Care Code 72601 Subseq Hosp Care Lvl 2 Diagnoses Deep postoperative wound infection T81.42XA Fracture of distal fibula S82.839A Essential (primary) hypertension I10 Hypothyroidism E03.9 Diabetes mellitus E11.9 Constipation K59.00 Hypokalemia E87.6 DVT prophylaxis Z29.9
[2019-11-16] MEDS ORDERED: bisacodyL 10 MG SUPP PR ONE (14:30)
--- NOTE | 2019-11-16 15:35 | Discharge Summary ---
Date of Service November 16, 2019 Admission HPI Per Admitting Provider Patient is a 64-year-old male who is here today for preoperative history and physical. He is scheduled to have removal of hardware from his right ankle and irrigation and debridement with Dr. Guerrero on November 14, 2019 at the [facility]. He is status post an open reduction internal fixation of his right ankle fracture On February 07, 2019. He reports ongoing pain and swelling in his right ankle. He states that since his surgery his ankle incision opened up 3 times. First of these episodes with [place] [facility] of July and early August. He is currently on doxycycline. It recently opened about a month ago. He has had pain at rest and with walking. His ambulation is limited due to pain in his right ankle. He describes it as a sharp stabbing pain down through his heel. He has been getting around with a wheelchair. He denies any injuries. States that it hurt ever since surgery. Since his last appointment he's been off the doxycycline at the request of Dr. Guerrero. He's been doing dressing changes on his own every day or every other day. States that it does drain every time her pushes on it. Denies any fevers or chills. Discharge Data Consultations 11/14/19 15:51 Consult Case Management - Discharge Planning Routine Consult Hospitalist Routine Procedures Performed Operation Date: 11/14/19 09:20 Actual Procedures p Right Ankle Hardware Removal - Job Guerrero MD s Irrigation and Debridement, with application of Stimulan antibiotic beads - Job Guerrero MD Hospital Course (1) Deep postoperative wound infection: Patient was admitted to [facility] after undergoing Irrigation, debridement, hardware removal of his right ankle for suspected postoperative infection. Surgery was performed on November 14, [address] Guerrero. His surgery was performed with general anesthesia and a peripheral nerve block. Antibiotics were held preoperatively in order to obtain intraoperative cultures. Once cultures obtained he was given 2 g of IV Ancef. He tolerated the procedure well without any intraoperative or postoperative complications. He had an MRSA nasal saw performed prior to surgery which was negative. Postoperatively he was allowed out of bed, partial weightbearing no more than 50% on his right lower extremity. He was placed in a splint and was allowed to weight-bear on the splint. He was admitted after the surgery for pain management, gait training, IV antibiotics for his infection. He was given oral Tylenol, IV Dilaudid and oxycodone for postoperative pain control. Hospitalist consult was placed for postoperative medical management and assistance with IV antibiotics during his inpatient stay. A Glycemic control consult was also placed for management of his diabetes during his inpatient stay.He was evaluated by physical therapy. He was out of bed with a walker. He tolerated a regular diet. His vital signs remained stable with slight elevation of his blood p ressure. His regular medications were continued. He was started on IV vancomycin and Zosyn on postoperative day one for treatment of his infection. His chief radiology cultures grew out methicillin sensitive Staphylococcus aureus. Due to this, his IV vancomycin and Zosyn were discontinued and he was in started on IV Rocephin once a day dose. A PICC line was placed on postoperative day one, after consent obtained, the chest x-ray showed that the line was coiled and they were unable to get it uncoiled. A new PICC line was placed on postoperative day 2. Site was confirmed with chest x-ray. His IV Rocephin was started through the PICC line. He tolerated this fine. On postoperative to his dressings were changed on his right ankle. A cam boot was ordered and will be placed by orthotics. He was instructed to use the boot when out of bed and with weightbearing but may remove it when in bed and at rest. Continue use of the walker to assist with ambulation. Continue partial weightbearing. He did well out of bed and was stable for discharge to [facility] on November 17, 2019. Discharge instructions were provided. Follow up in 2-3 weeks as instructed. Discharge Instructions Must keep in isolation while in [facility] Will need [facility] at all times due to post op infection and PICC line May be no more than 50% weight bearing with boot on. Needs to have boot on right leg at all times when out of bed. If lying in bed, may remove boot. Wear boot when sleeping. Keep incision covered at all times. Change dressing every day or every other day and as needed. Cover with gauze dressing and TERESE bandage. Do not put any ointment on incision. Ice to right ankle as needed for pain/swelling. Use walker/wheelchair to assist with ambulation Elevate right lower extremity as needed for pain/swelling. Regular diet as tolerated. IV antibiotics as prescribed. IV Rocephin daily as prescribed. Tylenol or Advil as needed for pain. Colace and senokot daily as needed for constipation. Follow up with Dr. Guerrero 10-14 days after the procedure. Surgery performed on 11/14/19. Follow up 12/05/19, call Dr. Guerrero's office to schedule. Ambulation and ankle pumps for DVT prophylaxis.
[2019-11-16] MEDS: cefTRIAXone SODIUM 2,000 MG in DEXTROSE 5% 50 ML IV SCH (17:10)
[2019-11-16] MEDS: SENNA 8.6 MG TAB PO SCH (19:42)
[2019-11-16] MEDS: POLYETHYLENE (MIRALAX) 17 GM PACK PO SCH (19:42)
[2019-11-16] MEDS: DOCUSATE SODIUM/SENNA 50/8.6MG TAB PO SCH (19:42)
[2019-11-16] MEDS: carBAMazepine 200 MG TABLET PO SCH (21:36)
[2019-11-17] MEDS: OXYCODONE HCL IR 5 MG TAB (IMMEDIATE RELEASE) PO PRN ×3 (02:45→14:53)
[2019-11-17] MEDS: LEVOTHYROXINE SODIUM 112 MCG TABLET PO SCH (05:24)
[2019-11-17] MEDS: ACETAMINOPHEN 500 MG TAB PO SCH ×2 (05:24→13:03)
[2019-11-17 06:44] LABS: BUN Creatinine Ratio 10.1 (10-20); Calcium 8.9 mg/dl (8.5-10.1); Creatinine Clr Calc Pharmacy 93.1 ml/min; Est GFR (African American) 87.9; Est GFR (Non-African American) 75.9; Potassium 3.7 mmol/L (3.5-5.1)
[2019-11-17] MEDS: DOCUSATE SODIUM 100 MG CAP PO SCH (08:28)
[2019-11-17] MEDS: CHOLECALCIFEROL 1,000 UNITS 25 MCG TAB PO SCH (08:28)
[2019-11-17] MEDS: MULTIVITAMIN TAB PO SCH (08:28)
[2019-11-17] MEDS: DOCUSATE SODIUM/SENNA 50/8.6MG TAB PO SCH (08:28)
[2019-11-17] MEDS: lisinopriL 20 MG TAB PO SCH (08:28)
[2019-11-17] MEDS: ASPIRIN 81 MG ECTAB PO SCH (08:28)
[2019-11-17] MEDS: ATORVASTATIN 40 MG TAB PO SCH (08:29)
[2019-11-17] MEDS: POLYETHYLENE (MIRALAX) 17 GM PACK PO SCH ×3 (08:29→17:18)
[2019-11-17] MEDS: ENOXAPARIN INJ 40 MG/0.4 ML SYR SQ SCH (08:35)
[2019-11-17] MEDS: INSULIN ASPART 100 UNITS/ML 3 ML PEN SC SCH ×3 (08:52→17:17)
[2019-11-17] MEDS ORDERED: MAGNESIUM CITRATE 296 ML/BTL PO SCH (10:15)
[2019-11-17] MEDS: MAGNESIUM HYDROXIDE SUSP 30 ML UDC PO PRN (12:11)
[2019-11-17] MEDS ORDERED: bisacodyL 10 MG SUPP PR STA (14:56)
--- NOTE | 2019-11-17 15:20 | Progress Notes ---
DATE: 11/17/2019 Resting comfortably in bed. Somewhat constipated but getting ready to go to the bathroom. He has been up ambulating, partial weightbearing with walker. He has his boot. His PICC line is functioning. He is afebrile and his vital signs are stable. There have been no changes in his cultures. He can wiggle his toes and the dressing is clean and dry. He has a deep postoperative wound infection status post open reduction and internal fixation of the right distal fibula. He is a diabetic and likely has osteomyelitis. The plan is to discharge him back to the facility. He may partial weightbear with boot and walker. When nonweightbearing, he can take the boot off and move his ankle. He may shower and wash with soap and water. Hygiene washing hands with soap and wearing gloves prior to dressing the wound is discussed. Dressing change every day or two. Elevate, ice. Pain medication. Discontinue Lovenox. Continue the Rocephin 2 grams IV. He will follow up with me in 3 weeks and will get some labs and recheck x-rays. Will likely need 6 weeks of IV antibiotics. At that time, can consider removing sutures. If there are any problems with wound, fevers or any other problems or questions, he is to let the doctors know and hopefully come back to the Emergency Room or my office. He is to be in mandatory isolation.
[2019-11-17] MEDS: cefTRIAXone SODIUM 2,000 MG in DEXTROSE 5% 50 ML IV SCH (15:49)
[2019-11-17] MEDS ORDERED: AMLODIPINE BESYLATE 5 MG TAB PO ONE (17:20)
--- NOTE | 2019-11-17 17:22 | Hospitalist Progress Note ---
Date of Service November 17, 2019 Assessment & Plan (1) Deep postoperative wound infection: * POD #3 s/p RIGHT ankle hardware removal, I&D, Stimulan abx bead placement with Dr. Guerrero on 11/13. EBL 15mL * Pre-op h/h 13.6/38.9 * H/h stable * Pain management/PT/OT/DVT prophylaxis per primary team * Culture growing staph aureus, pansensitive except to tetracycline --> discussed with primary team. Plan for 6 weeks Rocephin 2gm IV Q24h -- I spoke with case management and will add to d/c instructions. PICC line in place. (2) Fracture of distal fibula: * See above (3) Essential (primary) hypertension: * Chronic. Elevated likely secondary to pain -- ordered amlodipine 5mg x 1 prior to d/c * Continue home lisinopril 20mg (4) Hypothyroidism: * Chronic. Stable. TSH 0.940 * Continue levothyroxine 112 mcg daily (5) Diabetes mellitus: * Hold home metformin while inpatient * BSG AC/HS, ISS while inpatient * Pharmacy consulted for glycemic management * Repeat A1c 6.0 -- follow up outpatient -- per discussion with patient, he has not been so compliant with taking as prescribed. Encouraged better compliance to prevent complications/wound healing * Patient to be on isolation on return to correctional facility * Consider wound consultation for follow up (6) Constipation: * Bowel regimen per primary -- patient without BM and hypoactive BS on exam --> KUB ordered with significant fecal retention. No evidence of SBO * dulcolax suppository -- discussed with patient as he was agreeable * Continued senna/docusate at night and added an extra dose in the morning 11/16 * Miralax QID * Additional mag citrate given without BM * Additional dulcolax suppository with resulting several small BM * ENcouraged limiting use of pain medications as well as increased ambulation (7) Hypokalemia: * K 3.4 on admission, replaced * Continues to be stable --> 3.7 * Repeat in AM (8) DVT prophylaxis: * Tay Roberson Thank you for involving us in the care of Mr. Faust. Please do not hesitate to call with questions or concerns. Medicine service will sign off. Patient to be discharged this evening. Admission and Anticipated Discharge Date Admission Date: November 14, 2019 Supervising Physician Co-Signing Physician Notes PA Supervision Note: I did not personally see or examine the patient today, but I verified all [place] points of IRVIN Rogel's assessment and plan with the following exceptions/additions: None Subjective Pain tolerable with pain medication. Patient passing gas but no BM as of this morning. Had been up walking the halls with walker and walking boot. Had increased miralax to QID and softener. Ordered mag citrate without BM. Additional dulcolax suppository given with multiple small bowel movements. Continuing to pass gas. Rocephin ordered for 6 weeks via PICC for staph infection. Isolation on return to assisted. Review of Systems Review of Systems: All systems reviewed & are unremarkable except as noted in HPI & below Physical Exam Physical Exam: Constitutional WD/WN, vitals as above cooperative and comfortable; no acute distress Respiratory normal respiratory effort, lungs clear to auscultation Cardiovascular RRR, no murmur, no edema Extremities: normal capillary refill; no calf tenderness 2+ pt, dp pulses bilaterally Gastrointestinal (Abdomen) Inspection/Auscultation: + abdomen distended and + hypoactive bowel sounds Percussion/Palpation: abdomen nontender, no guarding, abdomen not rigid and no hepatosplenomegaly Musculoskeletal no cyanosis or clubbing, extremities motor strength 5/5 NVI Boot to RIGHT LE Skin Dressing c/d/i to RLE Psychiatric A+Ox3, euthymic affect Results & Data ([facility]) Vital Signs (Past 12 Hours) Vital Signs Temp Pulse Pulse Resp BP BP Pulse Ox 11/17/19 15:31 36.7 C 68 17 176/98 H 96 11/17/19 15:23 36.4 C L 78 72 18 165/91 H 179/95 H 96 11/17/19 07:32 36.4 C L 72 18 165/91 H 96 Laboratory Results 11/17/19 11/17/19 11/17/19 Range/Units 16:51 12:05 08:01 Sodium (136-145) mmol/L Potassium (3.5-5.1) mmol/L Chloride (98-107) mmol/L Carbon Dioxide (21-32) mmol/L Anion Gap (3-11) BUN (7-18) mg/dl Creatinine (0.6-1.4) mg/dl Est Cr Clr Drug Dosing ml/min Est GFR ( Amer) Est GFR (Non-Af Amer) BUN/Creatinine Ratio (10-20) Glucose (70-99) mg/dl POC Glucose 111 H 93 113 H (70-99) mg/dl Calcium (8.5-10.1) mg/dl 11/17/19 11/16/19 Range/Units 05:48 20:33 Sodium 140 (136-145) mmol/L Potassium 3.7 (3.5-5.1) mmol/L Chloride 108 H (98-107) mmol/L Carbon Dioxide 28 (21-32) mmol/L Anion Gap 4.0 (3-11) BUN 10 (7-18) mg/dl Creatinine 1.03 (0.6-1.4) mg/dl Est Cr Clr Drug Dosing 93.1 ml/min Est GFR ( Amer) 87.9 Est GFR (Non-Af Amer) 75.9 BUN/Creatinine Ratio 10.1 (10-20) Glucose 99 (70-99) mg/dl POC Glucose 97 (70-99) mg/dl Calcium 8.9 (8.5-10.1) mg/dl PG Care Time/CCT Total # of Minutes Spent Total Time Spent with Patient: Total time spent is greater than 50% in coordination of care (as documented) at patient's floor/unit and/or counseling patient: Coding Level of Care Code 23827 Subseq Hosp Care Lvl 1 Diagnoses Deep postoperative wound infection T81.42XA Fracture of distal fibula S82.839A Essential (primary) hypertension I10 Hypothyroidism E03.9 Diabetes mellitus E11.9 Constipation K59.00 Hypokalemia E87.6 DVT prophylaxis Z29.9
== END 2019-11-17 17:26 | DRG 857 ==
LOC: ASU 07:10 → 3E 15:15